=== PATIENT | male | born 1935 | race Caucasian/White ===

== ENCOUNTER 2017-07-24 18:43 | Inpatient (IN) ==
[2017-07-24] MEDS ORDERED: Levofloxacin 750 MG/150 ML 750 MG/150 ML BAG IVPB ONE (18:50)
[2017-07-24] MEDS ORDERED: Piperacillin/Tazobactam 3.375 GM/200 ML BAG IVPB ONE (18:50)
[2017-07-24] MEDS ORDERED: Ipratropium/Albuterol Neb 3 ML IH ONE ×2 (18:52→22:03)
--- NOTE | 2017-07-24 18:57 | Emergency Department Note ---
START Narrative - START START: I examined this patient and my medical decision-making was reviewed with the ROSS CARRIER DRIVER/PA/Advanced Practice Nurse/Resident Physician. I agree with the documented findings, disposition and treatment plan as described except to the extent set forth below. ED attending note: Patient seen with emergency medicine resident Dr. Aung Diaz. We independently evaluated the patient. We independently had face-to- face contact with the patient. Please see a copy of his note for details of the history and physical, evaluation, management and disposition of this emergency Department patient. Briefly: 81-year-old male by EMS [facility] for aspiration yesterday and cough shortness of breath and fever today. Patient has difficulty communicating due to his coughing. He was hypoxic upon arrival to Neck and tachycardic. Suspected source of infection is aspiration pneumonia with rhonchorous breath sounds bilaterally. Patient being worked up and treated for potential H Pneumonia. Providing 45 minutes of critical care services for this patient. Admission disposition pending.
--- NOTE | 2017-07-24 18:58 | Emergency Department Note ---
Disposition Clinical Impression: Aspiration pneumonia Qualifiers: Aspiration pneumonia type: unspecified Laterality: bilateral Lung location: lower lobe of lung Qualified Code(s): J69.0 - Pneumonitis due to inhalation of food and vomit Sepsis Qualifiers: Sepsis type: sepsis due to unspecified organism Qualified Code(s): A41.9 - Sepsis, unspecified organism Disposition: Admitted As Inpatient Condition: Fair Referrals: Augustina Cyr [Primary Care Provider] - Forms: Work/School Release, ED Satisfaction Letter Time of Disposition: 21:09 General Adult HPI - General Chief complaint: ED Shortness of Breath/Dyspnea Stated complaint: "cough, possible pnuemonia" Source: EMS Mode of arrival: EMS Limitations: no limitations Nursing Notes Reviewed: Yes Vital Signs Reviewed: Yes - History of Present Illness HPI Narrative: Patient is a 81-year-old male with a past medical history of dementia, CHF, A. fib, diabetes, and hypertension presents by squad from [facility] for the complaint of possible aspiration pneumonia. According to the squad the patient aspirated food yesterday while eating and the nurse that takes care of him is concerned that she heard a rattling noise in his lungs that he has been coughing since yesterday evening. Per squad the patient had a temp of 101F his oxygen saturation was in the low 90s so is placed on 2 L of nasal cannula. I called the half-way and the patient resides and they state that the patient tends to become more quiet when he is sick and also mostly to suggest his family members. The patient does not answer any of my questions he just coughs and looks forward. When the patient's family member arrived I discussed with her that the patient does not appear to be in normal mental status and the patient's family member states that he has severe dementia and talks more to them that he does other people. Pain Scale: 0 - Related Data Home Medications Medication Instructions Recorded Confirmed Acetaminophen 325 mg PO BID PRN 03/09/17 03/09/17 Albuterol Neb [Proventil Neb] 2.5 mg IH BID PRN 03/09/17 03/09/17 Albuterol Neb [Proventil Neb] 2.5 mg IH Q24H 03/09/17 03/09/17 Aspirin [Lo-Dose Aspirin EC] 81 mg PO DAILY 03/09/17 03/09/17 Atorvastatin Calcium [Lipitor] 40 mg PO DAILY 03/09/17 03/09/17 Carbidopa/Levodopa 1 each PO TID 03/09/17 03/09/17 [Carbidopa-Levodopa 25-100 Tab] Diltiazem CD (24hr) [Cardizem CD] 120 mg PO DAILY 03/09/17 03/09/17 Donepezil HCl [Aricept] 10 mg PO DAILY 03/09/17 03/09/17 GlipiZIDE [Glipizide Xl] 10 mg PO DAILY 03/09/17 03/09/17 Isosorbide MONOnitrate (24 HR) 30 mg PO DAILY 03/09/17 03/09/17 [Imdur] Linagliptin [Tradjenta] 5 mg PO DAILY 03/09/17 03/09/17 Lisinopril [Zestril] 10 mg PO DAILY 03/09/17 03/09/17 Memantine [Namenda] 10 mg PO BID 03/09/17 03/09/17 Midodrine HCl 2.5 mg PO BID 03/09/17 03/09/17 Montelukast [Singulair] 10 mg PO DAILY 03/09/17 03/09/17 [place]-3 Fatty Acids [Fish Oil 1,000 mg PO DAILY 03/09/17 03/09/17 Concentrate] Omeprazole [PriLOSEC] 20 mg PO DAILY 03/09/17 03/09/17 Polyethylene Glycol 3350 [MiraLAX] 17 gm PO DAILY PRN 03/09/17 03/09/17 Sertraline [Zoloft] 25 mg PO DAILY 03/09/17 03/09/17 Allergies Allergy/AdvReac Type Severity Reaction Status Date / Time cimetidine [From Tagamet] AdvReac Irritable Verified 03/09/17 13:01 citalopram [From Celexa] AdvReac Nausea Verified 03/09/17 12:29 metformin AdvReac Diarrhea Verified 03/09/17 12:29 Limitations: ROS unobtainable due to patients medical condition Past Medical History - Past Medical History Medical history: Reports: atrial fibrillation, CHF, dementia, diabetes, hyperlipidemia, hypertension Surgical history: Reports: pacemaker/AICD Psychiatric history: Reports: no psych history - Social History Smoking Status: Never smoker Smokeless Tobacco Status: No Alcohol use: Reports: none Drug use: Reports: none Physical Exam Patient is [place] febrile at 100.2 degrees Fahrenheit. Patient was tachycardic on arrival however that has resolved to the upper 90s. He is hypertensive in the 170s of/90s. His pulse ox saturation per squad was in the low 90s which is why he was on nasal cannula however when taken off oxygen he drops to 94%. - General Limitations: no limitations General appearance: alert - Head Head exam: atraumatic, normocephalic, normal inspection - Eye Eye exam: Present: normal appearance, PERRL - ENT ENT exam: normal exam, mucous membranes dry - Neck Neck exam: Present: normal inspection, full ROM, trachea midline. Absent: tenderness - Chest Chest inspection: Present: normal inspection, symmetric chest wall rise. Absent : tenderness - Expanded Respiratory Exam Location: decreased breath sounds: Lower, Right, Left - Cardiovascular Cardiovascular exam: Present: normal rhythm, tachycardia, normal heart sounds, + S1, +S2 - Abdominal Exam Abdominal exam: Present: soft, Non-Tender, normal bowel sounds - Extremities Exam Extremities exam: Present: normal inspection, full ROM, normal capillary refill , pedal edema. Absent: tenderness - Back Exam Back exam: Present: normal inspection, full ROM. Absent: tenderness, CVA tenderness (R), CVA tenderness (L) - Neurological Exam Neurological exam: Present: alert - Skin Skin exam: Present: warm, dry, intact, normal color. Absent: rash, erythema Course Course Narrative: Patient's old male presenting from [facility] today complaining of possible aspiration pneumonia. On arrival was noted that the patient had a fever one or one he is tachycardic in the 110s, the patient is also hypoxic via squad and placed on 2 L nasal cannula. Due to the patient's current dementia/ altered mental status and his vital signs clinical concern for pneumonia we treated for sepsis patient. Sepsis workup was initiated which included blood cultures, lactate, basic labs as well as chest x-ray and cardiac workup. Patient will be started on empiric antibiotics for aspiration pneumonia coverage. Patient mostly to be admitted to the hospitalist for sepsis with possible causes of pneumonia. - Reevaluation(s) Reevaluation #1: Patient's chest x-ray came positive for bibasilar opacities which could represent infiltrates according to the radiologist. Also cardiomegaly with mild pulmonary vascular congestion.. Antibiotics of been on board since patient 's arrival. The patient has a leukocytosis of 14,000 with elevated neutrophils otherwise his lab work is unremarkable. I discussed these findings with the hospitalist to discuss it reinitiated cultures and antibiotics the plan is symmetric patient for pneumonia with sepsis. She agrees with the plan. Time: 21:14 Vital Signs Temperature 100.2 F H 07/24/17 18:47 Pulse Rate 108 07/24/17 18:47 Respiratory Rate 22 07/24/17 18:47 Blood Pressure 180/87 07/24/17 18:47 O2 Sat by Pulse Oximetry 96 07/24/17 18:47 Temperature 100.2 F H 07/24/17 18:47 Pulse Rate 94 07/24/17 20:18 Respiratory Rate 21 07/24/17 20:18 Blood Pressure 159/74 07/24/17 20:18 O2 Sat by Pulse Oximetry 96 07/24/17 20:18 Oxygen Delivery Oxygen Delivery Nasal Cannula Medical Decision Making - Medical Records Medical records reviewed: Yes I reviewed the patient's medical records. - Lab Data Lab results reviewed: Yes I reviewed the patient's lab results. Result diagrams: 07/24/17 19:08 07/24/17 19:08 Lab Results 07/24/17 07/24/17 07/24/17 Range/Units 19:08 19:08 19:08 WBC 14.0 H (4.3-11.1) K/mcL RBC 5.28 (4.19-5.50) M/mcL Hgb 16.0 (12.9-16.9) g/dL Hct 45.7 (37.5-50.1) % MCV 86.6 (83.0-100.0) fL MCH 30.3 (28.0-33.3) pg MCHC 35.0 (31.6-35.5) g/dL RDW 13.0 (11.5-14.5) % Plt Count 204 (140-400) K/mcL MPV 10.4 (9.4-12.4) fL Immature Gran % 0.4 (0-4) % Seg Neutrophils % 73.5 % Lymphocytes % 15.9 % Monocytes % 9.7 % Eosinophils % 0.1 % Basophils % 0.4 % Neutrophils # 10.2 H (1.6-8.9) K/mcL Lymphocytes # 2.2 (0.6-4.6) K/mcL Monocytes # 1.4 H (0.0-1.3) K/mcL Eosinophils # 0.0 (0.0-0.6) K/mcL Basophils # 0.1 (0.0-0.2) K/mcL Sodium 138 (136-145) mEq/L Potassium 3.9 (3.5-5.1) mEq/L Chloride 107 (98-107) mEq/L Carbon Dioxide 20 L (23-29) mEq/L BUN 22 (8-23) mg/dL Creatinine 1.07 (0.70-1.30) mg/dL Est GFR ( Amer) > 60 (> 60) Est GFR (Non-Af Amer) > 60 (> 60) BUN/Creatinine Ratio 21 (6-26) Glucose 165 H (70-105) mg/dL Calculated Osmolality 293 (280-300) Calcium 9.0 (8.6-10.3) mg/dL Phosphorus 3.1 (2.7-4.5) mg/dL Magnesium 1.7 (1.6-2.6) mg/dL Troponin I 0.03 (< 0.04) ng/mL B-Natriuretic Peptide (Less than 100) pg/mL Specimen Rejected 07/24/17 07/24/17 Range/Units 19:08 19:10 WBC (4.3-11.1) K/mcL RBC (4.19-5.50) M/mcL Hgb (12.9-16.9) g/dL Hct (37.5-50.1) % MCV (83.0-100.0) fL MCH (28.0-33.3) pg MCHC (31.6-35.5) g/dL RDW (11.5-14.5) % Plt Count (140-400) K/mcL MPV (9.4-12.4) fL Immature Gran % (0-4) % Seg Neutrophils % % Lymphocytes % % Monocytes % % Eosinophils % % Basophils % % Neutrophils # (1.6-8.9) K/mcL Lymphocytes # (0.6-4.6) K/mcL Monocytes # (0.0-1.3) K/mcL Eosinophils # (0.0-0.6) K/mcL Basophils # (0.0-0.2) K/mcL Sodium (136-145) mEq/L Potassium (3.5-5.1) mEq/L Chloride (98-107) mEq/L Carbon Dioxide (23-29) mEq/L BUN (8-23) mg/dL Creatinine (0.70-1.30) mg/dL Est GFR ( Amer) (> 60) Est GFR (Non-Af Amer) (> 60) BUN/Creatinine Ratio (6-26) Glucose (70-105) mg/dL Calculated Osmolality (280-300) Calcium (8.6-10.3) mg/dL Phosphorus (2.7-4.5) mg/dL Magnesium (1.6-2.6) mg/dL Troponin I (< 0.04) ng/mL B-Natriuretic Peptide 34 (Less than 100) pg/mL Specimen Rejected Hemolyzed - Radiology Data Radiology results reviewed: Yes I reviewed the patient's radiology results. Chest X-Ray 07/24/17 18:48 IMPRESSION: Mild bibasilar opacities are present, which could represent atelectasis, infiltrates or aspiration. Low lung volumes limit evaluation. Cardiomegaly with mild pulmonary vascular congestion and possible trace effusions. D/ / Shiv Bey MD / Shiv Bey MD Interpreting Provider: Shiv Bey MD - EKG Data EKG #1 EKG attestation: Yes I reviewed and interpreted this EKG. EKG results narrative: Patient's EKG shows sinus rhythm at a rate of 91 bpm. His normal axis. CO is 152, QRS is 122, QT is 365 and QTc is 413 within normal limits. No signs of ST elevation, depression or Q waves present and no old EKG for comparison.
[2017-07-24 19:29] LABS: Basophils # 0.1 K/mcL (0.0-0.2); Basophils % 0.4 %; Eosinophils % 0.1 %; Hematocrit 45.7 % (37.5-50.1); Immature Granulocytes % 0.4 % (0-4); Lymphocytes # 2.2 K/mcL (0.6-4.6); Lymphocytes % 15.9 %; Mean Corpuscular Hemoglobin 30.3 pg (28.0-33.3); Mean Corpuscular Volume 86.6 fL (83.0-100.0); Mean Platelet Volume 10.4 fL (9.4-12.4); Monocytes # 1.4 K/mcL (0.0-1.3); Monocytes % 9.7 %; Neutrophils # 10.2 K/mcL (1.6-8.9); Platelet Count 204 K/mcL (140-400); Red Blood Count 5.28 M/mcL (4.19-5.50); Segmented Neutrophils % 73.5 %
[2017-07-24 19:47] LABS: BUN/Creatinine Ratio 21 (6-26); Blood Urea Nitrogen 22 mg/dL (8-23); Carbon Dioxide 20 mEq/L (23-29); Chloride 107 mEq/L (98-107); Glucose 165 mg/dL (70-105); Magnesium 1.7 mg/dL (1.6-2.6); Osmolality,Calculated 293 (280-300); Phosphorous 3.1 mg/dL (2.7-4.5); Potassium 3.9 mEq/L (3.5-5.1); Sodium 138 mEq/L (136-145); eGFR For African Americans > 60 (> 60); eGFR For Non-African Americans > 60 (> 60)
[2017-07-24] MEDS ORDERED: Piperacillin/Tazobactam 3.375 GM in Water for inj. (sterile) 20 ML IVP ONE (19:48)
[2017-07-24] MEDS ORDERED: Vancomycin 1,750 MG in D5% in Water 500 ML IVPB ONE (19:51)
[2017-07-24] MEDS ORDERED: Acetaminophen 325 MG TABLET PO PRN (21:39)
[2017-07-24] MEDS ORDERED: Naloxone 0.4 MG/ML INJ IVP PRN (21:39)
--- NOTE | 2017-07-24 22:00 | Internal Med History&Physical ---
<Naldo Joyner J - Last Filed: 07/24/17 22:59> Date of Encounter: 07/24/17 Time of Encounter: 21:53 Assessment and Plan (1) Aspiration pneumonia Current visit: Yes Status: Acute ASSESSMENT: - Dyspnea and hypoxia d/t aspiration PNA. He reports the patient aspirated while eating yesterday. Since then he has had a cough, fever, and dyspnea. -CXR concerning for aspiration PNA. PLAN: - Blood Cx- follow and narrow ATB as clinically appropriate - Antibiotics include Vancomycin, Levaquin and Zosyn - CBCD, CMP in AM - Tylenol 650 mg PO q 4-6 hr PRN pain or fever - Restart Home meds - Heparin 5000 U SQ BID -REspiratory support per NC; titrate to maintain Spo2 >92% -Continuous tele, and Spo2 monitoring Qualifiers: Aspiration pneumonia type: unspecified Laterality: bilateral Lung location: lower lobe of lung Qualified Code(s): J69.0 - Pneumonitis due to inhalation of food and vomit (2) HTN (hypertension) Current visit: Yes Status: Chronic H/O HTN, SBP 160's. Resume home antihypertensives. Give 10mg IVP metoprolol for SBP greater than 160. Hold for HR less than 60. continue to monitor Qualifiers: Hypertension type: essential hypertension Qualified Code(s): I10 - Essential (primary) hypertension (3) Dementia Current visit: Yes Status: Chronic Qualifiers: Dementia type: unspecified type Dementia behavioral disturbance: without behavioral disturbance Qualified Code(s): F03.90 - Unspecified dementia without behavioral disturbance (4) Leukocytosis Current visit: Yes Status: Acute secondary to aspiration PNA. CBCD in the morning. See further planning above Qualifiers: Leukocytosis type: unspecified Qualified Code(s): D72.829 - Elevated white blood cell count, unspecified (5) Diabetes mellitus Current visit: No Status: Acute Qualifiers: Diabetes mellitus type: type 2 Diabetes mellitus complication status: without complication Diabetes mellitus jail insulin use: without jail use Qualified Code(s): E11.9 - Type 2 diabetes mellitus without complications (6) DVT prophylaxis Current visit: Yes Status: Acute Heparin 5000 units SC BID Internal Medicine - H&P: HPI Chief complaint: DYSPNEA, HYPOXIA, ASPIRATION PNEUMONIA Admitted From: Home Plans for Post Hospital Care: Home History of present illness: Mr. Gutierrez is a 81 year old male with a PMH of dementia, Afib, pacer/AICD, CHF , HTN, and DM. He lives at [facility] and presents to [facility] today with a 1-day h/o cough, fever, and hypoxia. The patient is demented and unable to assist in H&P, but is daughter is at bedside. All information obtained from chart review, physician report and daughter. She reports that she was contacted by his primary nurse with concern that he may have aspirated yesterday while eating his meal. Since then he has been febrile, dyspneic, and coughing. Upon arrival to [facility] today he was found to be febrile and hypoxic with Spo2 in the low 90's and he was requiring nasal cannula at 2L to maintain Spo2 greater than 94%. He has leukocytosis with a WBC of 14 and CXR reveals mild bibasilar opacities which given his presentation and history is likely aspiration pneumonia. He is being admitted as inpatient for administration of IV ATB for aspiration PNA. I have seen and examined the patient in the ED. Past Med Surg Social Fam HX - Past Medical History Medical history: atrial fibrillation, CHF, dementia, diabetes, hyperlipidemia, hypertension Psychiatric history: no psych history - Past Surgical History Surgical History: pacemaker/AICD - Social History Smoking Status: Never smoker Smokeless Tobacco Status: No Alcohol use: none Drug use: none - Family History Mother Hx Family Neuromuscular Disorders: Yes (ALZHIEMER'S DISEASE.) Internal Medicine - H&P: Meds Acetaminophen 650 mg PO Q4H PRN 03/09/17 [History] Albuterol Neb [Proventil Neb] 2.5 mg IH BID 03/09/17 [History] Albuterol Neb [Proventil Neb] 2.5 mg IH BID PRN 03/09/17 [History] Aspirin [Lo-Dose Aspirin EC] 81 mg PO QAM 03/09/17 [History] Atorvastatin Calcium [Lipitor] 40 mg PO DAILY 03/09/17 [History] Carbidopa/Levodopa [Carbidopa-Levodopa 25-100 Tab] 1 each PO TID 03/09/17 [ History] Diltiazem CD (24hr) [Cardizem CD] 120 mg PO QAM 03/09/17 [History] Donepezil HCl [Aricept] 10 mg PO HS 03/09/17 [History] Isosorbide MONOnitrate (24 HR) [Imdur] 30 mg PO QAM 03/09/17 [History] Linagliptin [Tradjenta] 5 mg PO QAM 03/09/17 [History] Lisinopril [Zestril] 10 mg PO QAM 03/09/17 [History] Memantine [Namenda] 10 mg PO BID 03/09/17 [History] Midodrine HCl 2.5 mg PO BID 03/09/17 [History] Montelukast [Singulair] 10 mg PO DAILY 03/09/17 [History] [place]-3 Fatty Acids [Fish Oil Concentrate] 1,000 mg PO DAILY 03/09/17 [History] Omeprazole [PriLOSEC] 20 mg PO DAILY 03/09/17 [History] Polyethylene Glycol 3350 [MiraLAX] 17 gm PO DAILY PRN 03/09/17 [History] Sertraline [Zoloft] 25 mg PO HS 03/09/17 [History] Cholecalciferol (D-3) [Vitamin D] 2,000 unit PO DAILY 07/25/17 [History] Insulin ASPART [NovoLOG] 10 unit SQ TID 07/25/17 [History] Insulin Glargine [Lantus] 15 unit SQ HS 07/25/17 [History] 3 Allergy/AdvReac Type Severity Reaction Status Date / Time cimetidine [From Tagamet] AdvReac Irritable Verified 03/09/17 13:01 citalopram [From Celexa] AdvReac Nausea Verified 03/09/17 12:29 metformin AdvReac Diarrhea Verified 03/09/17 12:29 All Systems PM: A 10-system review of systems was performed and is negative for pertinent findings except as documented above in the HPI. - Constitutional Constitutional: fatigue, fever(s), weakness, no anorexia, no chills - Cardiovascular Cardiovascular ROS IM: no chest pain, no diaphoresis, no dyspnea, no edema, no irregular heart rhythm, no lightheadedness, no palpitations, no syncope - Respiratory Respiratory: cough, dyspnea, chest congestion, no pain on inspiration, no excessive phlegm production, no change in phlegm color, no pain with cough - Gastrointestinal Gastrointestinal: no abdominal pain, no diarrhea, no hematemesis, no hematochezia, no melena, no nausea, no vomiting - Musculoskeletal Musculoskeletal ROS IM: no numbness, no tingling - Integumentary Integumentary IM: no rash, no unusual bruising - Neurological Neurological ROS: confusion (baseline) - Constitutional Vitals: Temp Pulse Resp BP Pulse Ox 100.2 F H 84 20 172/72 96 07/24/17 18:47 07/24/17 21:40 07/24/17 21:40 07/24/17 21:40 07/24/17 21:40 General appearance: Present: A&O X 0, mild distress - Head Head exam: Present: atraumatic, normocephalic - Neck Neck exam general surgery: Present: supple, trachea midline. Absent: lymphadenopathy - Respiratory Respiratory exam: Present: rhonchi (throughout BL lobes A&P) - Cardiovascular Cardiovascular exam: Present: RRR, +S1, +S2. Absent: diastolic murmur, gallop, rubs, systolic murmur - GI/Abdominal GI/Abdominal exam: Present: normal bowel sounds, soft, no peritoneal signs. Absent: distended, tenderness - Extremities Exam Extremities exam: Present: warm, radial pulses palpable and symmetrical. Absent : calf tenderness, cyanotic, pedal edema - Neurological Exam Neurological exam: Present: alert (disoriented). Absent: facial droop, speech deficit - Skin Skin exam: Present: dry, intact Internal Med - H&P Results - Labs CBC & Chem 7: 07/24/17 19:08 07/24/17 19:08 Labs: Short CBC 07/24/17 Range/Units 19:08 WBC 14.0 H (4.3-11.1) K/mcL Hgb 16.0 (12.9-16.9) g/dL Hct 45.7 (37.5-50.1) % Plt Count 204 (140-400) K/mcL Neutrophils # 10.2 H (1.6-8.9) K/mcL BMP 07/24/17 19:08 Sodium 138 Potassium 3.9 Chloride 107 Carbon Dioxide 20 L BUN 22 Creatinine 1.07 Glucose 165 H Calcium 9.0 Cardiac Enzymes 07/24/17 Range/Units 19:08 Troponin I 0.03 (< 0.04) ng/mL - Impressions ITS Impressions Chest X-Ray 01/13/18 18:48 IMPRESSION: Mild bibasilar opacities are present, which could represent atelectasis, infiltrates or aspiration. Low lung volumes limit evaluation. Cardiomegaly with mild pulmonary vascular congestion and possible trace effusions. D/ / Shiv Bey MD / Shiv Bey MD Interpreting Provider: Shiv Bey MD - Diagnostic Studies Chest x-ray Status: image reviewed by me Additional comments: Mild basilar opacities present presentation and history likely aspiration pneumonia <Graciela Madrigal - Last Filed: 07/26/17 06:01> Date of Encounter: 07/24/17 Time of Encounter: 23:50 Internal Medicine - H&P: HPI History of present illness: Mr. Gutierrez is a 81 year old male All Systems PM: A 10-system review of systems was performed and is negative for pertinent findings except as documented above in the HPI. - Constitutional Vitals: Temp Pulse Resp BP Pulse Ox 98.5 F 67 18 129/78 93 07/26/17 03:07 07/26/17 03:07 07/26/17 03:27 07/26/17 03:07 07/26/17 03:07 Internal Med - H&P Results - Labs CBC & Chem 7: 07/25/17 03:37 07/25/17 03:37 - Attending Attestation Patient was independently seen and examined at bedside. Admitted for aspiration PNA from [place] will continue empiric IV abx, speech evaluation Case discussed with EBEN joyner, I agree with his documented findings, assessment, and plan except as listed above
[2017-07-24] MEDS ORDERED: Albuterol 2.5 MG/3 ML NEBULIZER ONE (22:01)
[2017-07-24] MEDS ORDERED: *HR* Metoprolol 5 MG/5 ML VIAL IVP ONE (23:15)
[2017-07-24] MEDS: Carbidopa/Levodopa 25/100 TABLET PO SCH (23:55)
[2017-07-25] MEDS ORDERED: Piperacillin/Tazobactam 3.375 GM in D5% in Water (Mini-Bag+) 100 ML IVPB SCH
[2017-07-25] MEDS: Ipratropium/Albuterol Neb 3 ML IH SCH ×7 (00:20→23:46)
[2017-07-25 03:49] LABS: Basophils % 0.4 %; Eosinophils % 0.1 %; Hematocrit 43.7 % (37.5-50.1); Hemoglobin 15.1 g/dL (12.9-16.9); Immature Granulocytes % 0.6 % (0-4); Lymphocytes # 0.8 K/mcL (0.6-4.6); Mean Corpuscular HGB Conc 34.6 g/dL (31.6-35.5); Mean Corpuscular Hemoglobin 30.1 pg (28.0-33.3); Mean Corpuscular Volume 87.2 fL (83.0-100.0); Monocytes % 10.8 %; Neutrophils # 7.7 K/mcL (1.6-8.9); Platelet Count 184 K/mcL (140-400); Red Blood Count 5.01 M/mcL (4.19-5.50); Red Cell Distribution Width 13.2 % (11.5-14.5); Segmented Neutrophils % 80.1 %
[2017-07-25 04:06] LABS: BUN/Creatinine Ratio 19 (6-26); Blood Urea Nitrogen 20 mg/dL (8-23); Calcium 8.5 mg/dL (8.6-10.3); Carbon Dioxide 22 mEq/L (23-29); Chloride 106 mEq/L (98-107); Glucose 228 mg/dL (70-105); Osmolality,Calculated 294 (280-300); Potassium 4.2 mEq/L (3.5-5.1); Sodium 137 mEq/L (136-145); eGFR For African Americans > 60 (> 60); eGFR For Non-African Americans > 60 (> 60)
[2017-07-25] MEDS: *HR* Heparin 5,000 UNIT/ML VIAL SQ SCH ×2 (05:03→16:13)
[2017-07-25] MEDS: Piperacillin/Tazobactam 3.375 GM/200 ML BAG IVPB SCH ×3 (05:03→20:38)
[2017-07-25] MEDS ORDERED: Vancomycin 1,250 MG in D5% in Water 250 ML IVPB SCH (09:00)
[2017-07-25] MEDS: Isosorbide MONOnitrate (24 HR) 30 MG TAB.ER.24H PO SCH (09:36)
[2017-07-25] MEDS: Carbidopa/Levodopa 25/100 TABLET PO SCH ×3 (09:36→20:39)
[2017-07-25] MEDS: Aspirin Enteric Coated 81 MG Tablet PO SCH (09:36)
[2017-07-25] MEDS: Diltiazem CD (24hr) 120 MG CAPSULE PO SCH (09:36)
--- NOTE | 2017-07-25 14:18 | Internal Med Progress Note ---
Date of Encounter: 07/25/17 Time of Encounter: 11:00 - Assessment and plan (1) Aspiration pneumonia Current Visit: Yes Status: Acute Assessment and plan: to ER with reported SOB and cough. Lives at [facility] and apparently had a choking episode while eating the day prior and there is concern for aspiration. CXR with bibasilar opacities concerning for possible aspiration. WBC 14K, Tmax 100.2. Continue IV Vanco, Zosyn, Levaquin. De-escalate ATB as cultures finalize and/or clinically improves. Urinary antigens, sputum culture, respiratory PCR pending. Keep NPO until evaluated by ST. Qualifiers: Aspiration pneumonia type: unspecified Laterality: bilateral Lung location: lower lobe of lung Qualified Code(s): J69.0 - Pneumonitis due to inhalation of food and vomit (2) Dementia Current Visit: Yes Status: Chronic Assessment and plan: per hx. [place] as well. Alert to self, place and situation. Mentation appears at baseline. Supportive care Qualifiers: Dementia type: unspecified type Dementia behavioral disturbance: without behavioral disturbance Qualified Code(s): F03.90 - Unspecified dementia without behavioral disturbance (3) Diabetes mellitus Current Visit: No Status: Acute Assessment and plan: per hx. Blood sugars variable. Start gentle infusion of D5 0.45 as he is NPO. SSI. Monitor blood sugars and titrate PRN Qualifiers: Diabetes mellitus type: type 2 Diabetes mellitus complication status: without complication Diabetes mellitus workers compensation specialist insulin use: without chcf use Qualified Code(s): E11.9 - Type 2 diabetes mellitus without complications (4) Paroxysmal A-fib Current Visit: Yes Status: Acute Assessment and plan: per hx. Rate controlled. No anticoagulation presumably due to advanced age and falls risk. Continue ASA, CBB (5) HTN (hypertension) Current Visit: Yes Status: Chronic Assessment and plan: per hx. BP controlled. Cont home BP medication. Monitor BP and titrate PRN Qualifiers: Hypertension type: essential hypertension Qualified Code(s): I10 - Essential (primary) hypertension (6) DVT prophylaxis Current Visit: Yes Status: Acute Assessment and plan: heparin - Subjective Interval history: Seen and examined at bedside. Patient is new to me, information obtained from chart review and patient report though patient has dementia so difficult to ascertain accuracy of information provided by patient. No family at bedside for collateral. Sitting up on the edge of the bed, has no complaints. Says he is hungry and wants to eat. No chest pain or shortness of breath. He does have a nonproductive cough. - Constitutional Vitals: Temp Pulse Resp BP Pulse Ox 98.9 F 81 18 121/61 93 07/25/17 11:54 07/25/17 11:54 07/25/17 11:54 07/25/17 11:54 07/25/17 11:54 General appearance: Present: A&O X 2, morbidly obese, no acute distress - Head Head exam: Present: atraumatic, normocephalic - Eye Eye exam: Present: PERRL, conjuntiva pink, sclera anicteric Pupils: Present: PERRL - Neck Neck exam general surgery: Present: supple, trachea midline. Absent: lymphadenopathy - Respiratory Respiratory exam: Present: CTAB, rhonchi. Absent: accessory muscle use, rales, wheezes - Cardiovascular Cardiovascular exam: Present: RRR, +S1, +S2. Absent: diastolic murmur, gallop, rubs, systolic murmur - GI/Abdominal GI/Abdominal exam: Present: normal bowel sounds, soft, no peritoneal signs. Absent: distended, tenderness - Extremities Exam Extremities exam: Present: warm, radial pulses palpable and symmetrical. Absent : calf tenderness, cyanotic, pedal edema - Neurological Exam Neurological exam: Present: CN II-XII intact, no focal deficits. Absent: pronater drift, facial droop, speech deficit - Skin Skin exam: Present: dry, intact Internal Medicine: Result - Labs CBC & Chem 7: 07/25/17 03:37 07/25/17 03:37 Labs: Short CBC 07/25/17 Range/Units 03:37 WBC 9.6 (4.3-11.1) K/mcL Hgb 15.1 (12.9-16.9) g/dL Hct 43.7 (37.5-50.1) % Plt Count 184 (140-400) K/mcL Neutrophils # 7.7 (1.6-8.9) K/mcL BMP 07/25/17 03:37 Sodium 137 Potassium 4.2 Chloride 106 Carbon Dioxide 22 L BUN 20 Creatinine 1.04 Glucose 228 H Calcium 8.5 L Consult Discharge Plan - Plan Referrals: Augustina Cyr [Primary Care Provider] -
[2017-07-25] MEDS ORDERED: *HR* Dextrose 50 % in Water (Syg) 50 ML SYRINGE IVP PRN (14:30)
[2017-07-25] MEDS ORDERED: Dextrose Gel 15 GM/37.5 ML TUBE PO PRN (14:30)
[2017-07-25] MEDS ORDERED: D5% in Water 1,000 ML IVC PRN (14:30)
[2017-07-25] MEDS: Levofloxacin 750 MG/150 ML 750 MG/150 ML BAG IVPB SCH (18:44)
[2017-07-25] MEDS: Insulin LISPRO 300 UNITS/3 ML VIAL SQ SCH (18:44)
[2017-07-25] MEDS: Vancomycin 1,500 MG in D5% in Water 250 ML IVPB SCH (22:26)
[2017-07-25] MEDS ORDERED: *HR* Metoprolol 5 MG/5 ML VIAL IVP ONE (23:05)
[2017-07-26] MEDS: Insulin LISPRO 300 UNITS/3 ML VIAL SQ SCH ×4 (00:02→18:40)
[2017-07-26] MEDS: Ipratropium/Albuterol Neb 3 ML IH SCH ×6 (03:27→23:45)
[2017-07-26] MEDS: Piperacillin/Tazobactam 3.375 GM/200 ML BAG IVPB SCH ×3 (04:19→20:28)
[2017-07-26] MEDS: *HR* Heparin 5,000 UNIT/ML VIAL SQ SCH ×2 (05:17→18:41)
[2017-07-26] MEDS: Diltiazem CD (24hr) 120 MG CAPSULE PO SCH ×2 (08:58→13:14)
[2017-07-26] MEDS: Isosorbide MONOnitrate (24 HR) 30 MG TAB.ER.24H PO SCH ×2 (08:58→13:14)
[2017-07-26] MEDS: Aspirin Enteric Coated 81 MG Tablet PO SCH ×2 (08:58→13:14)
[2017-07-26] MEDS: Carbidopa/Levodopa 25/100 TABLET PO SCH ×3 (08:58→20:29)
[2017-07-26] MEDS ORDERED: Vancomycin 1,750 MG in D5% in Water 250 ML IVPB SCH (09:00)
[2017-07-26] MEDS: Vancomycin 1,500 MG in D5% in Water 250 ML IVPB SCH (11:04)
--- NOTE | 2017-07-26 12:05 | Internal Med Progress Note ---
Date of Encounter: 07/26/17 Time of Encounter: 08:15 - Assessment and plan (1) Aspiration pneumonia Current Visit: Yes Status: Acute Assessment and plan: Patient with witnessed choking episode at assisted living prior to admission, there was concern for aspiration. Chest x-ray with bibasilar opacities concerning for possible aspiration. Patient with audible wheezing noted at this morning. Requiring supplemental oxygen. Patient is also positive for influenza A. Blood cultures x 2 negative. Continue IV vancomycin, IV Zosyn, IV Levaquin. Will de-escalate antibiotics as cultures finalize and/or patient clinically improves. Urinary antigens, sputum culture pending Continue O2 as needed to maintain sats greater than 92%. Continue duo nebs Qualifiers: Aspiration pneumonia type: unspecified Laterality: bilateral Lung location: lower lobe of lung Qualified Code(s): J69.0 - Pneumonitis due to inhalation of food and vomit (2) HTN (hypertension) Current Visit: Yes Status: Chronic Assessment and plan: Continue home medications. Monitor vitals per admission orders. Qualifiers: Hypertension type: essential hypertension Qualified Code(s): I10 - Essential (primary) hypertension (3) Dementia Current Visit: Yes Status: Chronic Qualifiers: Dementia type: unspecified type Dementia behavioral disturbance: without behavioral disturbance Qualified Code(s): F03.90 - Unspecified dementia without behavioral disturbance (4) Hyperlipidemia Current Visit: Yes Status: Chronic Assessment and plan: Chronic. Continue Lipitor. Qualifiers: Hyperlipidemia type: pure hypercholesterolemia Qualified Code(s): E78.00 - Pure hypercholesterolemia, unspecified (5) Diabetes mellitus Current Visit: No Status: Acute Assessment and plan: Uncontrolled. Hemoglobin A1c was 9.4% in May. Continue sliding scale insulin, Accu-Cheks before meals at bedtime, diabetic diet. Qualifiers: Diabetes mellitus type: type 2 Diabetes mellitus complication status: without complication Diabetes mellitus rn otolaryngology insulin use: without rn otolaryngology use Qualified Code(s): E11.9 - Type 2 diabetes mellitus without complications (6) Paroxysmal A-fib Current Visit: Yes Status: Acute Assessment and plan: Rate controlled. Continue aspirin and Cardizem. Patient is not on anticoagulation, mostly due to advanced age and increased risk of falls. (7) DVT prophylaxis Current Visit: Yes Status: Acute Assessment and plan: Heparin subcutaneous daily. (8) Obesity (BMI 30.0-34.9) Current Visit: Yes Status: Chronic Assessment and plan: Chronic. Continue to attempt to encourage lifestyle modifications. - Time Spent With Patient less than 15 minutes - Subjective Interval history: Patient was seen and assessed at bedside at 8:15 AM. He is alert and oriented 3 and answers questions appropriately. States he lives at assisted living at [facility]. He states that he is feeling better. He denies chest pain, nausea , vomiting, diarrhea, productive cough, headache, or abdominal pain. - Constitutional Vitals: Temp Pulse Resp BP Pulse Ox 98.3 F 60 17 111/57 93 07/26/17 08:10 07/26/17 08:10 07/26/17 08:10 07/26/17 08:10 07/26/17 08:10 General appearance: Present: cooperative, A&O X 3, morbidly obese, pleasant, no acute distress, answers questions appropriately - Head Head exam: Present: atraumatic, normal inspection, normocephalic - Eye Eye exam: Present: normal appearance, conjuntiva pink, sclera anicteric - Neck Neck exam general surgery: Present: supple, trachea midline - Respiratory Respiratory exam: Present: decreased breath sounds, CTAB, wheezes. Absent: accessory muscle use, rales, respiratory distress, rhonchi - Cardiovascular Cardiovascular exam: Present: RRR, +S1, +S2. Absent: diastolic murmur, gallop, rubs, systolic murmur - GI/Abdominal GI/Abdominal exam: Present: normal bowel sounds, soft, no peritoneal signs. Absent: distended, hepatomegaly - Extremities Exam Extremities exam: Present: normal inspection, warm, radial pulses palpable and symmetrical. Absent: calf tenderness, cyanotic, pedal edema - Neurological Exam Neurological exam: Present: alert, oriented X3, no focal deficits. Absent: facial droop, speech deficit - Skin Skin exam: Present: dry, intact, normal color, warm. Absent: rash Internal Medicine: Result - Labs CBC & Chem 7: 07/25/17 03:37 07/25/17 03:37 - Impressions Impressions Videofluoroscopic Swallow 07/26/17 09:30 IMPRESSION: Findings as described above. Please see separate speech pathology report for full discussion of findings and recommendations. D/ / 07/26/2017 11:54:51 Amadou Carrizales MD / Jocelin Power Interpreting Provider: Amadou Carrizales MD Consult Discharge Plan - Plan Referrals: Augustina Cyr [Primary Care Provider] -
--- NOTE | 2017-07-26 14:17 | Electrocardiograph Report ---
[place] [id number] Test Date: 2017-07-24 Pat Name: Jamel Gutierrez Department: 104 Room: 3B11 Gender: M Team Lead: MALIA : 1935 Requested By: Aung Diaz Order Number: [id number] Reading MD: Deanna Clark Measurements Intervals [place] Rate: 91 P: 14 OR: 162 QRS: -35 QRSD: 122 T: 15 QT: 365 QTc: 413 Interpretive Statements SINUS RHYTHM LEFT AXIS DEVIATION [QRS AXIS < -30] MINIMAL VOLTAGE CRITERIA FOR LVH, CONSIDER NORMAL VARIANT POSSIBLE ANTEROLATERAL MYOCARDIAL INFARCTION [30 ms Q WAVE IN I/aVL/V3-V6], PROBABLY OLD Electronically Signed On 07-26-2017 14:15:33 EST by Deanna Clark
[2017-07-26] MEDS: D5% in 0.45% NACL 1,000 ML IVC SCH ×2 (19:46)
[2017-07-26] MEDS: Levofloxacin 750 MG/150 ML 750 MG/150 ML BAG IVPB SCH (20:28)
[2017-07-26 20:31] LABS: Vancomycin,Trough 24.5 mcg/mL (10-20)
[2017-07-26 21:05] LABS: BUN/Creatinine Ratio 18 (6-26); Blood Urea Nitrogen 24 mg/dL (8-23); eGFR For African Americans > 60 (> 60); eGFR For Non-African Americans 51 (> 60)
[2017-07-27] MEDS: Insulin LISPRO 300 UNITS/3 ML VIAL SQ SCH ×6 (01:19→22:03)
[2017-07-27] MEDS: Ipratropium/Albuterol Neb 3 ML IH SCH ×6 (04:09→23:01)
[2017-07-27] MEDS: Piperacillin/Tazobactam 3.375 GM/200 ML BAG IVPB SCH ×3 (05:03→22:02)
[2017-07-27] MEDS: Vancomycin 1,500 MG in D5% in Water 250 ML IVPB SCH (05:03)
[2017-07-27] MEDS: *HR* Heparin 5,000 UNIT/ML VIAL SQ SCH ×2 (05:04→17:06)
[2017-07-27 05:51] LABS: Basophils % 0.4 %; Eosinophils # 0.1 K/mcL (0.0-0.6); Eosinophils % 0.9 %; Hemoglobin 14.4 g/dL (12.9-16.9); Immature Granulocytes % 0.7 % (0-4); Lymphocytes # 0.9 K/mcL (0.6-4.6); Mean Corpuscular HGB Conc 33.5 g/dL (31.6-35.5); Mean Corpuscular Hemoglobin 29.6 pg (28.0-33.3); Mean Corpuscular Volume 88.5 fL (83.0-100.0); Monocytes # 0.7 K/mcL (0.0-1.3); Monocytes % 12.9 %; Neutrophils # 3.7 K/mcL (1.6-8.9); Platelet Count 167 K/mcL (140-400); Red Blood Count 4.86 M/mcL (4.19-5.50); Segmented Neutrophils % 68.1 %
[2017-07-27 07:44] LABS: Calcium 8.7 mg/dL (8.6-10.3); Potassium 4.2 mEq/L (3.5-5.1)
[2017-07-27] MEDS: Aspirin Enteric Coated 81 MG Tablet PO SCH (08:37)
[2017-07-27] MEDS: Isosorbide MONOnitrate (24 HR) 30 MG TAB.ER.24H PO SCH (08:37)
[2017-07-27] MEDS: Diltiazem CD (24hr) 120 MG CAPSULE PO SCH (08:38)
[2017-07-27] MEDS: Carbidopa/Levodopa 25/100 TABLET PO SCH ×3 (08:38→22:03)
--- NOTE | 2017-07-27 14:47 | Internal Med Progress Note ---
Date of Encounter: 07/27/17 Time of Encounter: 10:00 - Assessment and plan (1) Aspiration pneumonia Current Visit: Yes Status: Acute Assessment and plan: Patient with witnessed choking episode at assisted living prior to admission, there was concern for aspiration. Chest x-ray with bibasilar opacities concerning for possible aspiration. Patient with audible wheezing noted at this morning, has improved since yesterday. He is Requiring supplemental oxygen and does not wear O2 at home. We will try to qualify him prior to discharge tomorrow. Patient is also positive for influenza A. Blood cultures x 2 negative. Continue IV vancomycin, IV Zosyn, IV Levaquin. Will de-escalate antibiotics as cultures finalize and/or patient clinically improves. Urinary antigens, sputum culture pending Continue O2 as needed to maintain sats greater than 92%. Continue duo nebs Qualifiers: Aspiration pneumonia type: unspecified Laterality: bilateral Lung location: lower lobe of lung Qualified Code(s): J69.0 - Pneumonitis due to inhalation of food and vomit (2) HTN (hypertension) Current Visit: Yes Status: Chronic Assessment and plan: Continue home medications. Monitor vitals per admission orders. Well controlled in hospital. Qualifiers: Hypertension type: essential hypertension Qualified Code(s): I10 - Essential (primary) hypertension (3) Dementia Current Visit: Yes Status: Chronic Assessment and plan: per hx. [place] as well. Alert to self, place and situation. He appears more alert and interactive today, answers all questions appropriately. Supportive care Qualifiers: Dementia type: unspecified type Dementia behavioral disturbance: without behavioral disturbance Qualified Code(s): F03.90 - Unspecified dementia without behavioral disturbance (4) Diabetes mellitus Current Visit: No Status: Acute Assessment and plan: Uncontrolled. Hemoglobin A1c was 9.4% in May. Continue sliding scale insulin, Accu-Cheks before meals at bedtime, diabetic diet. Qualifiers: Diabetes mellitus type: type 2 Diabetes mellitus complication status: without complication Diabetes mellitus termite technician insulin use: without termite technician use Qualified Code(s): E11.9 - Type 2 diabetes mellitus without complications (5) Paroxysmal A-fib Current Visit: Yes Status: Acute Assessment and plan: Rate controlled. Continue aspirin and Cardizem. Patient is not on anticoagulation, mostly due to advanced age and increased risk of falls. (6) Obesity (BMI 30.0-34.9) Current Visit: Yes Status: Chronic Assessment and plan: Chronic. Continue to attempt to encourage lifestyle modifications. (7) Influenza A Current Visit: Yes Status: Acute Assessment and plan: Flu swab positive on 07/24. Patient reports that he had symptoms for "a couple of days "before. He reports rhinorrhea, cough, general fatigue. He was not within the window to start Tamiflu on arrival Continue to treat symptoms. (8) DVT prophylaxis Current Visit: Yes Status: Acute Assessment and plan: Heparin subcutaneous daily. (9) Hyperlipidemia Current Visit: Yes Status: Chronic Assessment and plan: Chronic. Continue home medications. Qualifiers: Hyperlipidemia type: unspecified Qualified Code(s): E78.5 - Hyperlipidemia , unspecified - Time Spent With Patient less than 15 minutes - Subjective Interval history: Patient was seen and assessed at bedside at 1000 AM. He is alert and oriented 3 and answers questions appropriately. He is hard of hearing. He sitting up at bedside eating breakfast and states that he is feeling better. He denies chest pain, nausea, vomiting, diarrhea, productive cough, headache, or abdominal pain. Patient states that he [facility] not [facility] he wants to go home to assisted living with his . His social research assistant would like to have home health and physical therapy at home. Will be arranged for discharge tomorrow if he is medically stable. - Constitutional Vitals: Temp Pulse Resp BP Pulse Ox 97.5 F L 69 15 155/84 97 07/27/17 10:50 07/27/17 10:50 07/27/17 11:41 07/27/17 10:50 07/27/17 11:41 General appearance: Present: cooperative, A&O X 3, morbidly obese, pleasant, no acute distress, answers questions appropriately - Head Head exam: Present: atraumatic, normal inspection, normocephalic - Eye Eye exam: Present: normal appearance, conjuntiva pink, sclera anicteric - Neck Neck exam general surgery: Present: normal inspection, supple, trachea midline. Absent: lymphadenopathy, tenderness - Respiratory Respiratory exam: Present: wheezes. Absent: accessory muscle use, chest wall tenderness, CTAB, rales, respiratory distress, rhonchi - Cardiovascular Cardiovascular exam: Present: RRR, +S1, +S2. Absent: diastolic murmur, gallop, rubs, systolic murmur - GI/Abdominal GI/Abdominal exam: Present: distended, normal bowel sounds, soft. Absent: tenderness - Extremities Exam Extremities exam: Present: normal inspection, warm, radial pulses palpable and symmetrical. Absent: calf tenderness, cyanotic, pedal edema - Neurological Exam Neurological exam: Present: alert, oriented X3. Absent: facial droop, speech deficit - Skin Skin exam: Present: dry, intact, normal color, warm. Absent: rash Internal Medicine: Result - Labs CBC & Chem 7: 07/27/17 03:41 07/27/17 06:52 Labs: Short CBC 07/27/17 Range/Units 03:41 WBC 5.4 (4.3-11.1) K/mcL Hgb 14.4 (12.9-16.9) g/dL Hct 43.0 (37.5-50.1) % Plt Count 167 (140-400) K/mcL Neutrophils # 3.7 (1.6-8.9) K/mcL [facility] 07/26/17 07/27/17 19:59 06:52 Sodium 136 Potassium 4.2 Chloride 105 Carbon Dioxide 23 BUN 24 H 27 H Creatinine 1.34 H 1.86 H Glucose 252 H Calcium 8.7 Consult Discharge Plan - Plan Referrals: Augustina Cyr [Primary Care Provider] -
[2017-07-28] MEDS: Piperacillin/Tazobactam 3.375 GM/200 ML BAG IVPB SCH ×2 (03:38→11:26)
[2017-07-28] MEDS: Ipratropium/Albuterol Neb 3 ML IH SCH ×6 (04:33→23:00)
[2017-07-28 05:10] LABS: Basophils % 0.4 %; Eosinophils # 0.1 K/mcL (0.0-0.6); Eosinophils % 1.7 %; Hematocrit 41.7 % (37.5-50.1); Hemoglobin 14.4 g/dL (12.9-16.9); Immature Granulocytes % 0.4 % (0-4); Lymphocytes # 1.3 K/mcL (0.6-4.6); Lymphocytes % 24.8 %; Mean Corpuscular HGB Conc 34.5 g/dL (31.6-35.5); Mean Corpuscular Hemoglobin 30.3 pg (28.0-33.3); Mean Corpuscular Volume 87.6 fL (83.0-100.0); Mean Platelet Volume 10.4 fL (9.4-12.4); Monocytes # 0.5 K/mcL (0.0-1.3); Monocytes % 9.3 %; Neutrophils # 3.4 K/mcL (1.6-8.9); Platelet Count 151 K/mcL (140-400); Red Blood Count 4.76 M/mcL (4.19-5.50); Red Cell Distribution Width 13.2 % (11.5-14.5); Segmented Neutrophils % 63.4 %
[2017-07-28 05:26] LABS: Calcium 8.7 mg/dL (8.6-10.3); Potassium 3.6 mEq/L (3.5-5.1)
[2017-07-28] MEDS: Vancomycin 1,500 MG in D5% in Water 250 ML IVPB SCH (05:59)
[2017-07-28] MEDS: *HR* Heparin 5,000 UNIT/ML VIAL SQ SCH ×2 (06:00→17:34)
--- NOTE | 2017-07-28 07:21 | Physician Discharge Referral ---
Home Health/Hosp Referral Info Provider in Charge Post Discharge: PCP - Diagnosis (1) Aspiration pneumonia Priority: Primary Status: Acute (2) HTN (hypertension) Priority: Secondary Status: Chronic (3) Dementia Priority: Secondary Status: Chronic (4) Diabetes mellitus Priority: Secondary Status: Acute (5) Paroxysmal A-fib Priority: Secondary Status: Acute (6) Obesity (BMI 30.0-34.9) Priority: Secondary Status: Chronic (7) Influenza A Priority: Secondary Status: Acute (8) DVT prophylaxis Priority: Secondary Status: Acute (9) Hyperlipidemia Priority: Secondary Status: Chronic - Respiratory Orders Oxygen / L per min (2 liters) Smoking Cessation: Smoking cessation has been advised. For more information, call the [place] Tobacco Quit Line at 9-304-EFVN-NOW. - Diet/Nutrition Diet/Nutrition Orders: Mechanical Soft - Activity Activity Orders: Up ad elinor, Walker - Services Needed Following services are medically necessary services: Nursing, Home Health Aide, Physical Therapy, Occupational Therapy - Transfer Medications Home Medications: Acetaminophen 650 mg PO Q4H PRN 03/09/17 [History] Albuterol Neb [Proventil Neb] 2.5 mg IH BID 03/09/17 [History] Albuterol Neb [Proventil Neb] 2.5 mg IH BID PRN 03/09/17 [History] Aspirin [Lo-Dose Aspirin EC] 81 mg PO QAM 03/09/17 [History] Atorvastatin Calcium [Lipitor] 40 mg PO DAILY 03/09/17 [History] Carbidopa/Levodopa [Carbidopa-Levodopa 25-100 Tab] 1 each PO TID 03/09/17 [ History] Diltiazem CD (24hr) [Cardizem CD] 120 mg PO QAM 03/09/17 [History] Donepezil HCl [Aricept] 10 mg PO HS 03/09/17 [History] Isosorbide MONOnitrate (24 HR) [Imdur] 30 mg PO QAM 03/09/17 [History] Linagliptin [Tradjenta] 5 mg PO QAM 03/09/17 [History] Lisinopril [Zestril] 10 mg PO QAM 03/09/17 [History] Memantine [Namenda] 10 mg PO BID 03/09/17 [History] Midodrine HCl 2.5 mg PO BID 03/09/17 [History] Montelukast [Singulair] 10 mg PO DAILY 03/09/17 [History] [place]-3 Fatty Acids [Fish Oil Concentrate] 1,000 mg PO DAILY 03/09/17 [History] Omeprazole [PriLOSEC] 20 mg PO DAILY 03/09/17 [History] Polyethylene Glycol 3350 [MiraLAX] 17 gm PO DAILY PRN 03/09/17 [History] Sertraline [Zoloft] 25 mg PO HS 03/09/17 [History] Cholecalciferol (D-3) [Vitamin D] 2,000 unit PO DAILY 07/25/17 [History] Insulin ASPART [NovoLOG] 10 unit SQ TID 07/25/17 [History] Insulin Glargine [Lantus] 15 unit SQ HS 07/25/17 [History] Allergies/Adverse Reactions: 3 Allergy/AdvReac Type Severity Reaction Status Date / Time cimetidine [From Tagamet] AdvReac Irritable Verified 03/09/17 13:01 citalopram [From Celexa] AdvReac Nausea Verified 03/09/17 12:29 metformin AdvReac Diarrhea Verified 03/09/17 12:29 Certification: Further, I certify that my clinical findings support that this patient is homebound (i.e. absences from home require considerable and taxing effort and are for medical reasons or druze services or infrequently or short duration when for other reasons) because: Homebound Reason: Patient requires assistance of a person or device to safely leave home, Severity of cardiac or pulmonary status limits activity tolerance Attestation: My signature below is to certify that this patient is under my care and that I, or nurse practitioner, or a physician's roofer assistant working with me, has a face-to -face encounter with this patient.
[2017-07-28] MEDS: 0.9 % Sodium Chloride 1,000 ML IVC SCH ×2 (08:31→20:40)
[2017-07-28] MEDS: Carbidopa/Levodopa 25/100 TABLET PO SCH ×3 (08:32→20:41)
[2017-07-28] MEDS: Isosorbide MONOnitrate (24 HR) 30 MG TAB.ER.24H PO SCH (08:32)
[2017-07-28] MEDS: Diltiazem CD (24hr) 120 MG CAPSULE PO SCH (08:32)
[2017-07-28] MEDS: Aspirin Enteric Coated 81 MG Tablet PO SCH (08:33)
[2017-07-28] MEDS: Insulin LISPRO 300 UNITS/3 ML VIAL SQ SCH ×4 (08:35→20:49)
[2017-07-28] MEDS ORDERED: Aminoglycoside Consult 1 EACH MC ONE (10:36)
[2017-07-28 17:09] LABS: Calcium 8.1 mg/dL (8.6-10.3); Potassium 3.7 mEq/L (3.5-5.1)
--- NOTE | 2017-07-28 17:54 | Internal Med Progress Note ---
Date of Encounter: 07/28/17 Time of Encounter: 09:00 - Assessment and plan (1) Aspiration pneumonia Current Visit: Yes Status: Acute Assessment and plan: Patient with witnessed choking episode at assisted living prior to admission, there was concern for aspiration. Chest x-ray with bibasilar opacities concerning for possible aspiration. Patient with audible wheezing noted at this morning, has improved since yesterday. She is no longer requiring supplemental oxygen. Patient is also positive for influenza A. Blood cultures x 2 negative. Initial leukocytosis on arrival, has resolved since. IV vancomycin and Zosyn have been discontinued. Patient has been de-escalate it to by mouth Levaquin 75 mg every 48 hours. Urinary antigens, sputum culture pending Continue O2 as needed to maintain sats greater than 92%. Continue duo nebs Qualifiers: Aspiration pneumonia type: unspecified Laterality: bilateral Lung location: lower lobe of lung Qualified Code(s): J69.0 - Pneumonitis due to inhalation of food and vomit (2) HTN (hypertension) Current Visit: Yes Status: Chronic Assessment and plan: Continue home medications. Monitor vitals per admission orders. Well controlled in hospital. Qualifiers: Hypertension type: essential hypertension Qualified Code(s): I10 - Essential (primary) hypertension (3) Dementia Current Visit: Yes Status: Chronic Assessment and plan: per hx. [place] as well. Alert to self, place and situation. He appears alert and interactive today, answers all questions appropriately. Supportive care. Qualifiers: Dementia type: unspecified type Dementia behavioral disturbance: without behavioral disturbance Qualified Code(s): F03.90 - Unspecified dementia without behavioral disturbance (4) Diabetes mellitus Current Visit: No Status: Acute Assessment and plan: Uncontrolled. Hemoglobin A1c was 9.4% in May. Continue sliding scale insulin, Accu-Cheks before meals at bedtime, diabetic diet. Qualifiers: Diabetes mellitus type: type 2 Diabetes mellitus complication status: without complication Diabetes mellitus snf insulin use: without snf use Qualified Code(s): E11.9 - Type 2 diabetes mellitus without complications (5) Paroxysmal A-fib Current Visit: Yes Status: Acute Assessment and plan: Rate controlled. Continue aspirin and Cardizem. Patient is not on anticoagulation, mostly due to advanced age and increased risk of falls. Continue telemetry. (6) Obesity (BMI 30.0-34.9) Current Visit: Yes Status: Chronic Assessment and plan: Chronic. Continue to attempt to encourage lifestyle modifications. (7) Influenza A Current Visit: Yes Status: Acute Assessment and plan: Flu swab positive on 07/24. Patient reports that he had symptoms for "a couple of days "before. He reports rhinorrhea, cough, general fatigue. Symptoms have improved per patient. He was not within the window to start Tamiflu on arrival Continue to treat symptoms. (8) DVT prophylaxis Current Visit: Yes Status: Acute Assessment and plan: Heparin subcutaneous daily. (9) Hyperlipidemia Current Visit: Yes Status: Chronic Assessment and plan: Chronic. Continue home medications. Qualifiers: Hyperlipidemia type: unspecified Qualified Code(s): E78.5 - Hyperlipidemia , unspecified - Time Spent With Patient less than 15 minutes - Subjective Interval history: Patient was seen and assessed at bedside at 0900 AM. He is alert and oriented 3 and answers questions appropriately. He sitting up in chair at bedside eating breakfast and states that he is feeling better. He denies chest pain, nausea, vomiting, diarrhea, productive cough, headache, or abdominal pain. - Constitutional Vitals: Temp Pulse Resp BP Pulse Ox 97.6 F 64 16 125/80 99 07/28/17 16:14 07/28/17 16:14 07/28/17 16:47 07/28/17 16:14 07/28/17 16:47 General appearance: Present: cooperative, A&O X 3, morbidly obese, pleasant, no acute distress, answers questions appropriately - Head Head exam: Present: atraumatic, normal inspection, normocephalic - Eye Eye exam: Present: conjuntiva pink, sclera anicteric - Neck Neck exam general surgery: Present: supple, trachea midline. Absent: lymphadenopathy - Respiratory Respiratory exam: Present: decreased breath sounds, CTAB. Absent: accessory muscle use, chest wall tenderness, rales, respiratory distress, rhonchi, wheezes - Cardiovascular Cardiovascular exam: Present: RRR, +S1, +S2. Absent: diastolic murmur, gallop, rubs, systolic murmur - GI/Abdominal GI/Abdominal exam: Present: distended, normal bowel sounds, soft. Absent: tenderness - Extremities Exam Extremities exam: Present: normal capillary refill, warm, radial pulses palpable and symmetrical. Absent: calf tenderness, cyanotic, pedal edema - Neurological Exam Neurological exam: Present: alert, oriented X3, no focal deficits. Absent: facial droop, speech deficit - Skin Skin exam: Present: dry, intact, normal color, warm. Absent: rash Internal Medicine: Result - Labs CBC & Chem 7: 07/28/17 05:00 07/28/17 16:05 Labs: Short CBC 07/28/17 Range/Units 05:00 WBC 5.3 (4.3-11.1) K/mcL Hgb 14.4 (12.9-16.9) g/dL Hct 41.7 (37.5-50.1) % Plt Count 151 (140-400) K/mcL Neutrophils # 3.4 (1.6-8.9) K/mcL BMP 07/28/17 07/28/17 05:00 16:05 Sodium 141 141 Potassium 3.6 3.7 Chloride 107 111 H Carbon Dioxide 25 24 BUN 28 H 27 H Creatinine 2.41 H 2.26 H Glucose 225 H 228 H Calcium 8.7 8.1 L Consult Discharge Plan - Plan Referrals: Augustina Cyr [Primary Care Provider] -
[2017-07-28] MEDS ORDERED: Levofloxacin 750 MG/150 ML 750 MG/150 ML BAG IVPB SCH (19:00)
[2017-07-29] MEDS: Ipratropium/Albuterol Neb 3 ML IH SCH ×6 (03:24→23:05)
[2017-07-29] MEDS: *HR* Heparin 5,000 UNIT/ML VIAL SQ SCH ×2 (05:34→18:10)
[2017-07-29 07:50] LABS: Basophils % 0.5 %; Eosinophils # 0.1 K/mcL (0.0-0.6); Eosinophils % 2.1 %; Hematocrit 43.2 % (37.5-50.1); Hemoglobin 14.5 g/dL (12.9-16.9); Immature Granulocytes % 0.4 % (0-4); Lymphocytes # 1.1 K/mcL (0.6-4.6); Lymphocytes % 20.2 %; Mean Corpuscular HGB Conc 33.6 g/dL (31.6-35.5); Mean Corpuscular Hemoglobin 29.3 pg (28.0-33.3); Mean Corpuscular Volume 87.3 fL (83.0-100.0); Mean Platelet Volume 10.6 fL (9.4-12.4); Monocytes # 0.5 K/mcL (0.0-1.3); Monocytes % 8.2 %; Neutrophils # 3.8 K/mcL (1.6-8.9); Platelet Count 179 K/mcL (140-400); Red Blood Count 4.95 M/mcL (4.19-5.50); Red Cell Distribution Width 13.2 % (11.5-14.5); Segmented Neutrophils % 68.6 %
[2017-07-29] MEDS ORDERED: Vancomycin 1,000 MG in D5% in Water 250 ML IVPB SCH (08:00)
[2017-07-29 08:12] LABS: Calcium 8.8 mg/dL (8.6-10.3); Potassium 3.8 mEq/L (3.5-5.1)
[2017-07-29] MEDS: Insulin LISPRO 300 UNITS/3 ML VIAL SQ SCH ×4 (08:28→20:46)
[2017-07-29] MEDS: Diltiazem CD (24hr) 120 MG CAPSULE PO SCH (08:29)
[2017-07-29] MEDS: Isosorbide MONOnitrate (24 HR) 30 MG TAB.ER.24H PO SCH (08:29)
[2017-07-29] MEDS: Carbidopa/Levodopa 25/100 TABLET PO SCH ×3 (08:29→20:48)
[2017-07-29] MEDS: Aspirin Enteric Coated 81 MG Tablet PO SCH (08:29)
[2017-07-29] MEDS ORDERED: levoFLOXacin 750 MG TABLET PO SCH (09:00)
[2017-07-29] MEDS: 0.9 % Sodium Chloride 1,000 ML IVC SCH ×2 (12:02→16:06)
--- NOTE | 2017-07-29 14:38 | Internal Med Progress Note ---
Date of Encounter: 07/29/17 Time of Encounter: 09:20 - Assessment and plan (1) Aspiration pneumonia Current Visit: Yes Status: Acute Assessment and plan: Patient with witnessed choking episode at assisted living prior to admission, there was concern for aspiration. Chest x-ray with bibasilar opacities concerning for possible aspiration. Patient with audible wheezing noted at this morning, has improved since yesterday. She is no longer requiring supplemental oxygen. Patient is also positive for influenza A. Blood cultures x 2 negative. Initial leukocytosis on arrival, has resolved since. IV vancomycin and Zosyn have been discontinued. Antibiotics have been de- escalated to by mouth Levaquin 75 mg every 48 hours. Urinary antigens, sputum culture pending Continue O2 as needed to maintain sats greater than 92%. Continue duo nebs Qualifiers: Aspiration pneumonia type: unspecified Laterality: bilateral Lung location: lower lobe of lung Qualified Code(s): J69.0 - Pneumonitis due to inhalation of food and vomit (2) HTN (hypertension) Current Visit: Yes Status: Chronic Assessment and plan: Chronic. Continue home medications. Monitor vitals per admission orders. Well controlled in hospital. Qualifiers: Hypertension type: essential hypertension Qualified Code(s): I10 - Essential (primary) hypertension (3) Dementia Current Visit: Yes Status: Chronic Assessment and plan: Chronic. [place] as well. Alert to self, place and situation. He appears alert and interactive today, answers all questions appropriately. Supportive care. Qualifiers: Dementia type: unspecified type Dementia behavioral disturbance: without behavioral disturbance Qualified Code(s): F03.90 - Unspecified dementia without behavioral disturbance (4) Diabetes mellitus Current Visit: No Status: Acute Assessment and plan: Poorly controlled. Hemoglobin A1c was 9.4% in May. Continue sliding scale insulin, Accu-Cheks before meals at bedtime, diabetic diet. Qualifiers: Diabetes mellitus type: type 2 Diabetes mellitus complication status: without complication Diabetes mellitus long-term insulin use: without terminal press operator use Qualified Code(s): E11.9 - Type 2 diabetes mellitus without complications (5) Paroxysmal A-fib Current Visit: Yes Status: Acute Assessment and plan: Rate controlled. Continue aspirin and Cardizem. Patient is not on anticoagulation, mostly due to advanced age and increased risk of falls. Continue telemetry. (6) Obesity (BMI 30.0-34.9) Current Visit: Yes Status: Chronic Assessment and plan: Chronic. Continue to attempt to encourage lifestyle modifications. (7) Influenza A Current Visit: Yes Status: Acute Assessment and plan: Flu swab positive on 07/24. Patient reports that he had symptoms for "a couple of days "before. He reports rhinorrhea, cough, general fatigue. Symptoms have improved per patient. He was not within the window to start Tamiflu on arrival. Continue to treat symptoms. Symptoms have resolved. (8) DVT prophylaxis Current Visit: Yes Status: Acute Assessment and plan: Heparin subcutaneous daily. Up to chair BID (9) Hyperlipidemia Current Visit: Yes Status: Chronic Assessment and plan: Chronic. Continue home medications. Qualifiers: Hyperlipidemia type: unspecified Qualified Code(s): E78.5 - Hyperlipidemia , unspecified - Time Spent With Patient less than 15 minutes - Subjective Interval history: Patient was seen and assessed at bedside at 0920 AM. He is alert and oriented 3 and answers questions appropriately. He sitting up in chair at bedside eating breakfast and states that he is feeling better and wants to go home to his . I discussed with him and his renal function has not really improved and that we are going to continue to monitor him. He was agreeable. He denies chest pain, nausea, vomiting, diarrhea, productive cough, headache, or abdominal pain. - Constitutional Vitals: Temp Pulse Resp BP Pulse Ox 98.2 F 63 16 164/68 94 07/29/17 10:45 07/29/17 10:45 07/29/17 11:50 07/29/17 10:45 07/29/17 11:50 General appearance: Present: cooperative, A&O X 3, morbidly obese, pleasant, no acute distress, answers questions appropriately - Head Head exam: Present: atraumatic, normal inspection, normocephalic - Eye Eye exam: Present: normal appearance, conjuntiva pink, sclera anicteric - Neck Neck exam general surgery: Present: supple, trachea midline. Absent: lymphadenopathy, tenderness - Respiratory Respiratory exam: Present: decreased breath sounds, wheezes. Absent: accessory muscle use, chest wall tenderness, CTAB, rales, respiratory distress, rhonchi - Cardiovascular Cardiovascular exam: Present: RRR, +S1, +S2. Absent: diastolic murmur, gallop, rubs, systolic murmur - GI/Abdominal GI/Abdominal exam: Present: distended, normal bowel sounds, soft. Absent: hepatomegaly, tenderness - Extremities Exam Extremities exam: Present: normal inspection, warm, radial pulses palpable and symmetrical. Absent: calf tenderness, cyanotic, pedal edema, tenderness - Neurological Exam Neurological exam: Present: alert, oriented X3, no focal deficits. Absent: facial droop, speech deficit - Skin Skin exam: Present: dry, intact, normal color, warm. Absent: rash Internal Medicine: Result - Labs CBC & Chem 7: 07/29/17 07:34 07/29/17 07:34 Labs: Short CBC 07/29/17 Range/Units 07:34 WBC 5.6 (4.3-11.1) K/mcL Hgb 14.5 (12.9-16.9) g/dL Hct 43.2 (37.5-50.1) % Plt Count 179 (140-400) K/mcL Neutrophils # 3.8 (1.6-8.9) K/mcL BMP 07/28/17 07/29/17 16:05 07:34 Sodium 141 142 Potassium 3.7 3.8 Chloride 111 H 112 H Carbon Dioxide 24 22 L BUN 27 H 24 H Creatinine 2.26 H 2.13 H Glucose 228 H 284 H Calcium 8.1 L 8.8 Consult Discharge Plan - Plan Referrals: Augustina Cyr [Primary Care Provider] -
[2017-07-30] MEDS: Ipratropium/Albuterol Neb 3 ML IH SCH ×3 (03:24→12:37)
[2017-07-30 05:10] LABS: Calcium 8.7 mg/dL (8.6-10.3); Potassium 3.5 mEq/L (3.5-5.1)
[2017-07-30] MEDS: *HR* Heparin 5,000 UNIT/ML VIAL SQ SCH (05:17)
[2017-07-30] MEDS: Diltiazem CD (24hr) 120 MG CAPSULE PO SCH (08:17)
[2017-07-30] MEDS: Isosorbide MONOnitrate (24 HR) 30 MG TAB.ER.24H PO SCH (08:18)
[2017-07-30] MEDS: Carbidopa/Levodopa 25/100 TABLET PO SCH (08:18)
[2017-07-30] MEDS: Aspirin Enteric Coated 81 MG Tablet PO SCH (08:18)
[2017-07-30] MEDS: Insulin LISPRO 300 UNITS/3 ML VIAL SQ SCH ×2 (08:19→12:53)
[2017-07-30] MEDS ORDERED: amLODIPine 5 MG TABLET PO SCH (10:15)
--- NOTE | 2017-07-30 10:26 | Discharge Summary ---
Date of Encounter: 07/30/17 Time of Encounter: 09:15 - Discharge Diagnosis (1) Aspiration pneumonia Priority: Primary Status: Acute Comments: Patient admitted after witnessed choking episode at [facility]. Chest x-ray with bibasilar opacities concerning for aspiration. Patient treated with Levaquin, Zosyn, IV vancomycin. Patient has improved over the course of visit. He has wheezing heard in the posterior bases this morning, continuing to improve. Patient is no longer requiring supplemental oxygen. He was also positive for flu a. Blood cultures 2 were negative. The leukocytosis has resolved. IV and by mouth antibiotics have been DC'd. I have spoken with Bernie Leach, who works with Dr. Cyr in the nurse practitioners at [facility] in [place], she is aware of patient's condition and need for follow-up. Patient will be sent home with nebulizer and DuoNeb nebs to use when necessary for wheezing. Qualifiers: Aspiration pneumonia type: unspecified Laterality: bilateral Lung location: lower lobe of lung Qualified Code(s): J69.0 - Pneumonitis due to inhalation of food and vomit (2) HTN (hypertension) Priority: Secondary Status: Chronic Comments: Lisinopril has been stopped due to renal function. I started Norvasc 5 mg by mouth daily in its place. Mrs. Leach is aware of medication change and need for monitoring. She will have nurses monitor blood pressure closely over the weekend until he can follow up with Dr. Cyr on Wednesday. Qualifiers: Hypertension type: essential hypertension Qualified Code(s): I10 - Essential (primary) hypertension (3) Dementia Priority: Secondary Status: Chronic Comments: Chronic. He is alert to name, place. He is alert, interactive, pleasant. Continue to provide supportive care. Qualifiers: Dementia type: unspecified type Dementia behavioral disturbance: without behavioral disturbance Qualified Code(s): F03.90 - Unspecified dementia without behavioral disturbance (4) Diabetes mellitus Priority: Secondary Status: Chronic Comments: Diabetes is poorly controlled. A1c was 9.4% in May. Continue home medications, Accu-Chek regimen. Continue to encourage ADA diet. Qualifiers: Diabetes mellitus type: type 2 Diabetes mellitus complication status: without complication Diabetes mellitus assistant terminal manager insulin use: without retirement use Qualified Code(s): E11.9 - Type 2 diabetes mellitus without complications (5) Paroxysmal A-fib Priority: Secondary Status: Chronic Comments: Rate controlled. Continue aspirin and Cardizem at home. Patient is not on anticoagulant, most likely due to advanced age and increased risk of falls. Follow with cardiology and primary care. (6) Obesity (BMI 30.0-34.9) Priority: Secondary Status: Chronic Comments: Chronic. Attempt to encourage lifestyle modifications. (7) Influenza A Priority: Secondary Status: Acute Comments: Patient has positive flu swab on July 24. Patient reported that he had had symptoms for a couple days before. Symptoms appear to have resolved. Patient was not treated with Tamiflu due to duration of illness prior to presentation. Continue to treat symptoms as necessary. (8) DVT prophylaxis Priority: Secondary Status: Acute Comments: Heparin subcutaneously twice a day. Patient was up in chair. (9) Hyperlipidemia Priority: Secondary Status: Chronic Comments: Chronic. Continue home medications. Qualifiers: Hyperlipidemia type: unspecified Qualified Code(s): E78.5 - Hyperlipidemia , unspecified (10) Weakness Priority: Secondary Status: Chronic Comments: Patient with weakness and some physical deconditioning secondary to illness and hospitalization. Patient was evaluated by physical therapy and occupational therapy, they recommended short-term rehabilitation at SNF to improve safety and independence with functional mobility towards prior level of functioning. Patient declined SNF and instead will have to [facility], also will refer for physical therapy. (11) TERESA (acute kidney injury) Priority: Secondary Status: Acute Comments: Patient presented with mild AK I from assisted living, most likely due to poor by mouth intake and influenza. Patient is being treated for aspiration pneumonia with IV vancomycin, IV Zosyn, and IV Levaquin. Pharmacy was dosing vancomycin and Levaquin was every 48 hours, renal function declined. Patient received gentle IV fluid hydration and renal function is improving. Serum creatinine 1.85 today, GFR is 35. Retroperitoneal ultrasound was completed that showed no evidence of hydronephrosis, borderline diffuse urinary bladder wall thickening, no acute findings. I have spoken with Bernie Leach at [facility] regarding my concern that patient gets adequate follow-up and monitoring of renal function. She states that Dr. Cyr is there today, also will be there on Wednesday and there are nurse practitioners available, as well. She states the patient will receive labs on Wednesday and adequate follow-up throughout. - Discharge Medications Prescriptions: amLODIPine [Norvasc] 5 mg PO DAILY #10 tablet Home Medications: Acetaminophen 650 mg PO Q4H PRN 03/09/17 [History] Albuterol Neb [Proventil Neb] 2.5 mg IH BID 03/09/17 [History] Albuterol Neb [Proventil Neb] 2.5 mg IH BID PRN 03/09/17 [History] Aspirin [Lo-Dose Aspirin EC] 81 mg PO QAM 03/09/17 [History] Atorvastatin Calcium [Lipitor] 40 mg PO DAILY 03/09/17 [History] Carbidopa/Levodopa [Carbidopa-Levodopa 25-100 Tab] 1 each PO TID 03/09/17 [ History] Diltiazem CD (24hr) [Cardizem CD] 120 mg PO QAM 03/09/17 [History] Donepezil HCl [Aricept] 10 mg PO HS 03/09/17 [History] Isosorbide MONOnitrate (24 HR) [Imdur] 30 mg PO QAM 03/09/17 [History] Linagliptin [Tradjenta] 5 mg PO QAM 03/09/17 [History] Memantine [Namenda] 10 mg PO BID 03/09/17 [History] Midodrine HCl 2.5 mg PO BID 03/09/17 [History] Montelukast [Singulair] 10 mg PO DAILY 03/09/17 [History] Scheller-3 Fatty Acids [Fish Oil Concentrate] 1,000 mg PO DAILY 03/09/17 [History] Omeprazole [PriLOSEC] 20 mg PO DAILY 03/09/17 [History] Polyethylene Glycol 3350 [MiraLAX] 17 gm PO DAILY PRN 03/09/17 [History] Sertraline [Zoloft] 25 mg PO HS 03/09/17 [History] Cholecalciferol (D-3) [Vitamin D] 2,000 unit PO DAILY 07/25/17 [History] Insulin ASPART [NovoLOG] 10 unit SQ TID 07/25/17 [History] Insulin Glargine [Lantus] 15 unit SQ HS 07/25/17 [History] amLODIPine [Norvasc] 5 mg PO DAILY #10 tablet 07/30/17 [Rx] Allergies/Adverse Reactions: 3 Allergy/AdvReac Type Severity Reaction Status Date / Time cimetidine [From Tagamet] AdvReac Irritable Verified 03/09/17 13:01 citalopram [From Celexa] AdvReac Nausea Verified 03/09/17 12:29 metformin AdvReac Diarrhea Verified 03/09/17 12:29 Procedures/tests Complete & Pending: Procedures Performed prior 72 hours Category Date Time Status Retroperitoneal Ultrasound - Complete [US Exams 07/29/17 17:00 Completed retroperitoneal comp] [US] Stat Date of admission: 07/25/17 15:12 Primary care physician: Augustina Cyr Consults: 07/26/17 11:11 Consult to Occupational Therapy [CONS] Routine Comment: Evaluate, develop and implement POC Reason for Consult: evaluation Consult to Physical Therapy [CONS] Routine Comment: Evaluate, develop and implement POC Reason for Consult: evaluation 07/27/17 07:38 Consult to Television News Video Editor [CONS] Routine Reason for SW Consult: PT/OT recommend SNF for rehab. Pt is in asst living at [facility]. Discharging clinician: Kindra Lopez Anticipated date of discharge: 07/30/17 - Patient Status Disposition: Home Health Service Condition: Good Functional capacity at discharge: uses cane/walker Overall status at discharge: patient is progressing back to baseline - Discharge Instructions Follow Up With: Augustina Cyr [Primary Care Provider] - 08/06/17 9:40 am - Diet and Activity Activity: as per physical therapy Diet: diabetic diet, low fat, low cholesterol, low salt diet Hospital course: Mr. Gutierrez is a 81 year old male with past medical history of uncontrolled diabetes, hypertension, dementia, A. fib, hyperlipidemia. [facility] and was treated for aspiration pneumonia with IV vancomycin, IV Zosyn, IV Levaquin every 48 hours. The patient presented with mild TERESA about worsened with the IV antibiotics. The antibiotics were stopped and he finished his by mouth course of Levaquin every 48 hours. Lisinopril was also stopped and Norvasc was added. I have spoken with staff at [facility] regarding ensuring patient receives follow-up with physician for renal function and for hypertension. Otherwise, his labs and vital signs are stable and within normal limits. He remains confused, however this is his baseline. Patient is stable and appropriate for discharge. - Time Spent with Patient Total time spent providing and/or coordinating discharge services: Less than 30 minutes - Constitutional Vitals: Temp Pulse Resp BP Pulse Ox 97.9 F 68 17 177/84 98 07/30/17 07:47 07/30/17 07:47 07/30/17 07:47 07/30/17 07:47 07/30/17 07:47 General appearance: Present: cooperative, A&O X 3, morbidly obese, pleasant, no acute distress, answers questions appropriately - Head Head exam: Present: atraumatic, normal inspection, normocephalic - Eye Eye exam: Present: normal appearance, conjuntiva pink, sclera anicteric - Neck Neck exam general surgery: Present: supple, trachea midline. Absent: lymphadenopathy, tenderness - Respiratory Respiratory exam: Present: wheezes. Absent: accessory muscle use, chest wall tenderness, CTAB, rales, respiratory distress, rhonchi - Cardiovascular Cardiovascular exam: Present: RRR, +S1, +S2. Absent: diastolic murmur, gallop, rubs, systolic murmur - GI/Abdominal GI/Abdominal exam: Present: normal bowel sounds, soft, no peritoneal signs. Absent: distended, hepatomegaly, tenderness - Extremities Exam Extremities exam: Present: normal capillary refill, warm, radial pulses palpable and symmetrical. Absent: calf tenderness, cyanotic, pedal edema, tenderness - Neurological Exam Neurological exam: Present: alert, oriented X3, no focal deficits. Absent: facial droop, speech deficit - Skin Skin exam: Present: dry, intact, normal color, warm. Absent: rash
[2017-07-30 12:20] VITALS: BP 152/59
[2017-07-30] MEDS: 0.9 % Sodium Chloride 1,000 ML IVC SCH (12:53)
== END 2017-07-30 14:30 | disposition home health service (06) | DRG 178 ==
LOC: EMEROO 18:43 → 3BNU 18:43
PROVIDERS: ADMIT Nurse Practitioner; ATTEND Registered Nurse

== ENCOUNTER 2018-05-24 17:46 | Observation (INO) ==
[2018-05-24] MEDS ORDERED: Isovue-370 500 ML INFUS..BTL IV ONE (18:04)
--- NOTE | 2018-05-24 18:09 | Emergency Department Note ---
Disposition Clinical Impression: Pneumonia Qualifiers: Pneumonia type: due to unspecified organism Laterality: left Lung location: lower lobe of lung Qualified Code(s): J18.1 - Lobar pneumonia, unspecified organism Alzheimer's dementia Qualifiers: Alzheimer's disease onset: unspecified onset Dementia behavioral disturbance: without behavioral disturbance Qualified Code(s): G30.9 - Alzheimer's disease, unspecified Disposition: Admitted As Inpatient Condition: Good General Adult HPI - General Stated complaint: Belly Pain Time Seen by Provider: 05/24/18 17:47 Source: patient, family, EMS Limitations: no limitations Nursing Notes Reviewed: Yes Vital Signs Reviewed: Yes - History of Present Illness HPI Narrative: 82-year-old male with history of dementia who presents the emergency department with complaints of left-sided chest wall pain. Patient has been coughing significantly for the past 2 days and was sent in today after having a coughing fit with severe left-sided chest pain. He does have a history of dysphasia secondary to his Alzheimer's and frequently develops known pneumonia as a result. He denies any fever, chills but does intimately feel short of breath. He otherwise has no nausea, vomiting, abdominal pain, dysuria, hematuria, const ipation, headache, visual changes, or diarrhea. Pain Scale: 7 - Related Data Home Medications Medication Instructions Recorded Confirmed RX: Acetaminophen 650 mg PO Q4H PRN 03/09/17 05/24/18 RX: Albuterol Neb [Proventil Neb] 2.5 mg IH BID PRN 03/09/17 05/24/18 RX: Aspirin [Lo-Dose Aspirin EC] 81 mg PO QAM 03/09/17 05/24/18 RX: Carbidopa/Levodopa 1 each PO TID 03/09/17 05/24/18 [Carbidopa-Levodopa 25-100 Tab] RX: Isosorbide MONOnitrate (24 HR) 30 mg PO QAM 03/09/17 05/24/18 [Imdur] RX: Linagliptin [Tradjenta] 5 mg PO QAM 03/09/17 05/24/18 RX: Memantine [Namenda] 10 mg PO BID 03/09/17 05/24/18 RX: Midodrine HCl 2.5 mg PO BID 03/09/17 05/24/18 RX: Montelukast [Singulair] 10 mg PO DAILY 03/09/17 05/24/18 RX: [place]-3 Fatty Acids [Fish Oil 1,000 mg PO DAILY 03/09/17 05/24/18 Concentrate] RX: Polyethylene Glycol 3350 17 gm PO DAILY PRN 03/09/17 05/24/18 [MiraLAX] RX: Cholecalciferol (D-3) [Vitamin 5,000 unit PO DAILY 07/25/17 05/24/18 D] RX: Insulin ASPART [NovoLOG] 15 unit SQ TID 07/25/17 05/24/18 RX: Insulin Glargine [Lantus] 25 unit SQ HS 07/25/17 05/24/18 Fluticasone Propionate [Allergy 1 spr NS DAILY 05/24/18 05/24/18 Relief] Furosemide [Lasix] 20 mg PO DAILY 05/24/18 05/24/18 RX: amLODIPine [Norvasc] 10 mg PO DAILY 05/24/18 05/24/18 RX: traZODone [TraZODone] 25 mg PO HS 05/24/18 05/24/18 Allergies Allergy/AdvReac Type Severity Reaction Status Date / Time cimetidine [From Tagamet] AdvReac Irritable Verified 03/09/17 13:01 citalopram [From Celexa] AdvReac Nausea Verified 03/09/17 12:29 metformin AdvReac Diarrhea Verified 03/09/17 12:29 All systems ED: reviewed and negative except as stated. Review of Systems: As Per HPI Constitutional: Denies: fever, chills, weakness, weight change Cardiovascular: Reports: dyspnea on exertion, orthopnea, edema. Denies: chest pain, palpitations, syncope Respiratory: Reports: cough, dyspnea. Denies: wheezes, hemoptysis Gastrointestinal: Reports: abdominal pain. Denies: nausea, vomiting, diarrhea, constipation, hematemesis, melena Genitourinary: Denies: urgency, dysuria, frequency, hematuria Musculoskeletal: Denies: back pain, neck pain, arthralgia, myalgia Neurological: Denies: headache, weakness, numbness, paresthesias, confusion, abnormal gait, vertigo Psychiatric: Denies: anxiety, depression, suicidal thoughts, homicidal thoughts, auditory hallucinations, visual hallucinations Endocrine: Denies: fatigue Past Medical History - Past Medical History Attestation: Yes The following information was validated with the patient. Source: patient, old records reviewed, obtained from family Medical history: Reports: atrial fibrillation, CHF, dementia, diabetes, hyperlipidemia, hypertension, renal disease Surgical history: Reports: pacemaker/AICD Psychiatric history: Reports: no psych history - Social History Smoking Status: Never smoker Smokeless Tobacco Status: No Alcohol use: Reports: none Drug use: Reports: none Physical Exam - General Limitations: other (Baseline dementia and patient is hard of hearing) General appearance: alert, in no apparent distress - Head Head exam: atraumatic, normocephalic - Eye Eye exam: Present: normal appearance. Absent: scleral icterus - ENT ENT exam: normal exam, normal oropharynx - Neck Neck exam: Present: normal inspection. Absent: tenderness, meningismus - Chest Chest inspection: Present: normal inspection, tenderness - Expanded Chest Exam Breast: tenderness: left (Left lateral ribs) - Respiratory Respiratory exam: Present: normal lung sounds bilaterally, prolonged expiratory phase - Cardiovascular Cardiovascular exam: Present: regular rate, normal rhythm, normal heart sounds - Abdominal Exam Abdominal exam: Present: soft, Non-Tender, normal bowel sounds. Absent: distention, guarding, rebound - Extremities Exam Extremities exam: Present: pedal edema (2+) - Neurological Exam Neurological exam: Present: alert, oriented X3 - Psychiatric Psychiatric exam: Present: normal affect, normal mood - Skin Skin exam: Present: warm, dry, intact Course Vital Signs Temperature 98.6 F 05/24/18 17:50 Pulse Rate 69 05/24/18 17:50 Respiratory Rate 18 05/24/18 17:50 Blood Pressure 174/69 05/24/18 17:50 O2 Sat by Pulse Oximetry 94 05/24/18 17:50 Temperature 98.6 F 05/24/18 17:50 Pulse Rate 78 05/24/18 20:58 Respiratory Rate 18 05/24/18 19:26 Blood Pressure 156/79 05/24/18 20:58 O2 Sat by Pulse Oximetry 92 05/24/18 20:58 Oxygen Delivery Oxygen Delivery Room Air Medical Decision Making - MDM Narrative Medical decision making narrative: 82-year-old male with history of dysphasia and left-sided chest pain who presents with symptoms consistent with his previous episodes of pneumonia. Initial workup including CBC, BMP, BNP, EKG and chest x-ray obtained. CBC and BMP unremarkable. BNP 15. Troponin less than 0.3. Chest x-ray reveals left- sided basilar pneumonia. EKG unremarkable for acute changes. Given the patient's significant history of aspiration and dysphagia secondary to his Alzheimer's patient will require admission for coverage of aspiration pneumonia. Will give the patient Zosyn 4.5g IV. Patient accepted by Dr. Herring. Patient and family agree with and understand course of treatment plan including plan for admission. All questions answered. - Medical Records Medical records reviewed: Yes I reviewed the patient's medical records. - Lab Data Lab results reviewed: Yes I reviewed the patient's lab results. Result diagrams: 05/24/18 18:28 05/24/18 18:28 Lab Results 05/24/18 05/24/18 05/24/18 Range/Units 18:28 18:28 18:28 WBC 8.7 (4.3-11.1) K/mcL RBC 5.61 H (4.19-5.50) M/mcL Hgb 16.5 (12.9-16.9) g/dL Hct 47.6 (37.5-50.1) % MCV 84.8 (83.0-100.0) fL MCH 29.4 (28.0-33.3) pg MCHC 34.7 (31.6-35.5) g/dL RDW 12.9 (11.5-14.5) % Plt Count 213 (140-400) K/mcL MPV 10.9 (9.4-12.4) fL Immature Gran % 0.8 (0-4) % Seg Neutrophils % 63.2 % Lymphocytes % 24.8 % Monocytes % 7.3 % Eosinophils % 3.2 % Basophils % 0.7 % Neutrophils # 5.5 (1.6-8.9) K/mcL Lymphocytes # 2.2 (0.6-4.6) K/mcL Monocytes # 0.6 (0.0-1.3) K/mcL Eosinophils # 0.3 (0.0-0.6) K/mcL Basophils # 0.1 (0.0-0.2) K/mcL Sodium 139 (136-145) mEq/L Potassium 4.0 (3.5-5.1) mEq/L Chloride 102 (98-107) mEq/L Carbon Dioxide 25 (23-29) mEq/L BUN 20 (8-23) mg/dL Creatinine 0.95 (0.70-1.30) mg/dL Est GFR ( Amer) > 60 (> 60) Est GFR (Non-Af Amer) > 60 (> 60) BUN/Creatinine Ratio 21 (6-26) Glucose 257 H (70-105) mg/dL Calculated Osmolality 299 (280-300) Lactic Acid (0.5-2.2) mmol/L Calcium 9.6 (8.6-10.3) mg/dL Troponin I < 0.03 (< 0.04) ng/mL B-Natriuretic Peptide 15 (Less than 100) pg/mL 05/24/18 Range/Units 18:28 WBC (4.3-11.1) K/mcL RBC (4.19-5.50) M/mcL Hgb (12.9-16.9) g/dL Hct (37.5-50.1) % MCV (83.0-100.0) fL MCH (28.0-33.3) pg MCHC (31.6-35.5) g/dL RDW (11.5-14.5) % Plt Count (140-400) K/mcL MPV (9.4-12.4) fL Immature Gran % (0-4) % Seg Neutrophils % % Lymphocytes % % Monocytes % % Eosinophils % % Basophils % % Neutrophils # (1.6-8.9) K/mcL Lymphocytes # (0.6-4.6) K/mcL Monocytes # (0.0-1.3) K/mcL Eosinophils # (0.0-0.6) K/mcL Basophils # (0.0-0.2) K/mcL Sodium (136-145) mEq/L Potassium (3.5-5.1) mEq/L Chloride (98-107) mEq/L Carbon Dioxide (23-29) mEq/L BUN (8-23) mg/dL Creatinine (0.70-1.30) mg/dL Est GFR ( Amer) (> 60) Est GFR (Non-Af Amer) (> 60) BUN/Creatinine Ratio (6-26) Glucose (70-105) mg/dL Calculated Osmolality (280-300) Lactic Acid 1.6 (0.5-2.2) mmol/L Calcium (8.6-10.3) mg/dL Troponin I (< 0.04) ng/mL B-Natriuretic Peptide (Less than 100) pg/mL - Radiology Data Radiology results reviewed: Yes I reviewed the patient's radiology results. - EKG Data EKG #1 EKG attestation: Yes I reviewed and interpreted this EKG. EKG results narrative: Atrial paced rhythm. Rate of 66. Left axis deviation. No evidence of significant ST elevation. When compared with previous from 10/04/17 there is no significant change. Attestation Statement - Attestation Attestation: Resident Attestation: I examined this patient and my medical decision making was reviewed with the Resident Physician. I agree with the documented findings, disposition and treatment plan as described except to the extent set forth below. We independently had [id number] contact with the patient. Resident physician Dr. Mack. Patient presents to emergency department today for evaluation of flank pain. Patient has a history of dementia as well as previous dysphagia. Patient was coughing during dinner. Symptoms got worse. Brought in with family for further evaluation. He has had symptoms like this before with pneumonia. EKG, x-ray, blood work have been ordered. Blood work is unremarkable however the x-ray does show a left lower lobe pneumonia. Given his choking history as well as what appears to be episodes of aspiration pneumonia in the past. Patient will be admitted for IV antibiotics. Patient at this time does not appear to be in acute respiratory distress. His respiratory bed with no significant oxygen requirement. His wheezing which he presented with as moderate diffuse wheezing has improved to mild intermittent wheezing.
[2018-05-24] MEDS ORDERED: Ipratropium/Albuterol Neb 3 ML IH ONE (18:22)
[2018-05-24] MEDS ORDERED: methylPREDNISolone 125 MG/2 ML VIAL IVP STA (18:23)
[2018-05-24 18:45] LABS: Basophils # 0.1 K/mcL (0.0-0.2); Basophils % 0.7 %; Eosinophils # 0.3 K/mcL (0.0-0.6); Eosinophils % 3.2 %; Hematocrit 47.6 % (37.5-50.1); Hemoglobin 16.5 g/dL (12.9-16.9); Immature Granulocytes % 0.8 % (0-4); Lymphocytes # 2.2 K/mcL (0.6-4.6); Lymphocytes % 24.8 %; Mean Corpuscular HGB Conc 34.7 g/dL (31.6-35.5); Mean Corpuscular Hemoglobin 29.4 pg (28.0-33.3); Mean Corpuscular Volume 84.8 fL (83.0-100.0); Mean Platelet Volume 10.9 fL (9.4-12.4); Monocytes # 0.6 K/mcL (0.0-1.3); Monocytes % 7.3 %; Neutrophils # 5.5 K/mcL (1.6-8.9); Platelet Count 213 K/mcL (140-400); Red Blood Count 5.61 M/mcL (4.19-5.50); Red Cell Distribution Width 12.9 % (11.5-14.5); Segmented Neutrophils % 63.2 %
[2018-05-24 19:10] LABS: Troponin I < 0.03 ng/mL (< 0.04)
[2018-05-24 19:29] LABS: BUN/Creatinine Ratio 21 (6-26); Blood Urea Nitrogen 20 mg/dL (8-23); Calcium 9.6 mg/dL (8.6-10.3); Carbon Dioxide 25 mEq/L (23-29); Chloride 102 mEq/L (98-107); Glucose 257 mg/dL (70-105); Osmolality,Calculated 299 (280-300); Sodium 139 mEq/L (136-145); eGFR For Non-African Americans > 60 (> 60)
[2018-05-24] MEDS ORDERED: Piperacillin/Tazobactam 3.375 GM in 0.9 % Sodium Chloride Mini Bag 100 ML IVPB ONE (20:12)
[2018-05-24] MEDS ORDERED: *HR* Dextrose 50 % in Water (Syg) 50 ML SYRINGE IVP PRN (20:50)
[2018-05-24] MEDS ORDERED: Dextrose Gel 15 GM/37.5 ML TUBE PO PRN ×2 (20:50)
[2018-05-24] MEDS ORDERED: D5% in Water 1,000 ML IVC PRN (20:50)
[2018-05-24] MEDS ORDERED: Acetaminophen 325 MG TABLET PO PRN (20:55)
[2018-05-24] MEDS ORDERED: Naloxone 0.4 MG/ML INJ IVP PRN (20:55)
[2018-05-24] MEDS ORDERED: Ipratropium/Albuterol Neb 3 ML IH PRN (20:59)
--- NOTE | 2018-05-24 21:00 | Internal Med History&Physical ---
Date of Encounter: 05/25/18 Time of Encounter: 20:57 Internal Medicine - H&P: HPI Chief complaint: Cough Admitted From: Emergency Dept Plans for Post Hospital Care: Home History of present illness: Mr. Gutierrez is a 82 year old male with a PMH of dementia, Afib, pacer/AICD, CHF, HTN, and DM who presented to the ED from his assisted living after he had experienced left-sided chest pain with no radiation. The patient apparently choked on food earlier in the evening and experienced significant cough spells and experienced left-sided chest pain. He has been asked to cover for couple days and his cough is mostly dry. In the ED was hemodynamically stable. He was on oxygen but no reported hypoxia. The patient laboratory workup was unremarkable in the ED troponins within normal limits. Chest x-ray showed left basilar infiltrate. The patient has history of dementia and dysphagia and was treated for aspiration pneumonia in the past. He was given IV Zosyn in the ED. Also given breathing treatments. The patient was also given Solu-Medrol IV. He denies any fever, chills, nausea, dizziness, rashes, abdominal pain, diarrhea, constipation, urinary symptoms, or neurological symptoms. Past Med Surg Social Fam HX - Past Medical History Medical history: atrial fibrillation, CHF, dementia, diabetes, hyperlipidemia, hypertension, renal disease Additional medical history: ALZHIEMER'S DISEASE. Psychiatric history: no psych history - Past Surgical History Surgical History: pacemaker/AICD Additional surgical history: TURP. SKIN CA - Social History Smoking Status: Never smoker Smokeless Tobacco Status: No Alcohol use: none Drug use: none - Family History Mother Hx Family Neuromuscular Disorders: Yes (ALZHIEMER'S DISEASE.) Internal Medicine - H&P: Meds Acetaminophen 650 mg PO Q4H PRN 03/09/17 [History] Albuterol Neb [Proventil Neb] 2.5 mg IH BID PRN 03/09/17 [History] Aspirin [Lo-Dose Aspirin EC] 81 mg PO QAM 03/09/17 [History] Carbidopa/Levodopa [Carbidopa-Levodopa 25-100 Tab] 1 each PO TID 03/09/17 [History] Isosorbide MONOnitrate (24 HR) [Imdur] 30 mg PO QAM 03/09/17 [History] Linagliptin [Tradjenta] 5 mg PO QAM 03/09/17 [History] Memantine [Namenda] 10 mg PO BID 03/09/17 [History] Midodrine HCl 2.5 mg PO BID 03/09/17 [History] Montelukast [Singulair] 10 mg PO DAILY 03/09/17 [History] [place]-3 Fatty Acids [Fish Oil Concentrate] 1,000 mg PO DAILY 03/09/17 [History] Polyethylene Glycol 3350 [MiraLAX] 17 gm PO DAILY PRN 03/09/17 [History] Cholecalciferol (D-3) [Vitamin D] 5,000 unit PO DAILY 07/25/17 [History] Insulin ASPART [NovoLOG] 15 unit SQ TID 07/25/17 [History] Insulin Glargine [Lantus] 25 unit SQ HS 07/25/17 [History] Fluticasone Propionate [Allergy Relief] 1 spr NS DAILY 05/24/18 [History] Furosemide [Lasix] 20 mg PO DAILY 05/24/18 [History] amLODIPine [Norvasc] 10 mg PO DAILY 05/24/18 [History] traZODone [TraZODone] 25 mg PO HS 05/24/18 [History] Allergy/AdvReac Type Severity Reaction Status Date / Time cimetidine [From Tagamet] AdvReac Irritable Verified 03/09/17 13:01 citalopram [From Celexa] AdvReac Nausea Verified 03/09/17 12:29 metformin AdvReac Diarrhea Verified 03/09/17 12:29 Review of systems: All systems reviewed are negative except as mentioned above - Constitutional Vitals: Temp Pulse Resp BP Pulse Ox 98.6 F 59 18 144/71 94 05/24/18 17:50 05/24/18 19:00 05/24/18 19:26 05/24/18 19:26 05/24/18 19:26 Exam: GEN: NAD HEENT: AT, NC, No cyanosis, oral mucosa is moist, No JVD Lymphatics: No lymphadenoapthy Eyes: Extrocular muscles intact, anicteric CVS:RRR. S1, S2, No m/r/g RESP: Diminished with rhonchi in the left lower lung rdz posteriorly. ABD: Soft, NT, ND, +BS EXT: 1 + edema, No rashes, 2+ DP NEURO: Nonfocal, CN II-XII intact, No focal motor or sensory deficits Psych: Cooperative, Not anxious or depressed Internal Med - H&P Results - Labs CBC & Chem 7: 05/24/18 18:28 05/24/18 18:28 Labs: Short CBC 05/24/18 Range/Units 18:28 WBC 8.7 (4.3-11.1) K/mcL Hgb 16.5 (12.9-16.9) g/dL Hct 47.6 (37.5-50.1) % Plt Count 213 (140-400) K/mcL Neutrophils # 5.5 (1.6-8.9) K/mcL BMP 05/24/18 18:28 Sodium 139 Potassium 4.0 Chloride 102 Carbon Dioxide 25 BUN 20 Creatinine 0.95 Glucose 257 H Calcium 9.6 Cardiac Enzymes 05/24/18 Range/Units 18:28 Troponin I < 0.03 (< 0.04) ng/mL - Impressions ITS Impressions Chest X-Ray 05/24/18 18:21 IMPRESSION: Left basilar opacity may reflect atelectasis or pneumonia. D/ / Marcin Lee MD / Marcin Lee MD Interpreting Provider: Marcin Lee MD - Assessment and plan (1) Pneumonia Current Visit: No Status: Acute Assessment and plan: Given the patient's history of choking we will treat as aspiration pneumonia although his infiltrates is on the left. We will place the patient on Unasyn. He was given Zosyn in the ED. We will check sputum cultures. Check urine strep and Legionella. Check respiratory panel. O2 support as needed. Nebs. Qualifiers: Pneumonia type: aspiration pneumonia Aspiration pneumonia type: unspecified Laterality: left Lung location: unspecified part of lung Qualified Code (s): J69.0 - Pneumonitis due to inhalation of food and vomit (2) Acute exacerbation of CHF (congestive heart failure) Current Visit: Yes Status: Acute Assessment and plan: Patient has LE edema on my exam. Recent echo showed mild diastolic HF. Will give him one push of 40 mg IV lasix and re-evaluate for need of IV lasix in the morning. Qualifiers: Heart failure type: diastolic Qualified Code(s): I50.33 - Acute on chronic diastolic (congestive) heart failure (3) Dementia Current Visit: No Status: Chronic Assessment and plan: Chronic. Supportive care. Qualifiers: Dementia type: unspecified type Dementia behavioral disturbance: without behavioral disturbance Qualified Code(s): F03.90 - Unspecified dementia without behavioral disturbance (4) Diabetes mellitus Current Visit: No Status: Chronic Assessment and plan: We will place the patient on insulin size scale. Resume home insulin as well. Continue Accu-Cheks. Qualifiers: Diabetes mellitus type: type 2 Diabetes mellitus residential insulin use: without residential use Diabetes mellitus complication status: without complication Qualified Code(s): E11.9 - Type 2 diabetes mellitus without complications (5) HTN (hypertension) Current Visit: No Status: Chronic Assessment and plan: Resume home antihypertensives Qualifiers: Hypertension type: essential hypertension Qualified Code(s): I10 - Essential (primary) hypertension (6) DVT prophylaxis Current Visit: No Status: Acute Assessment and plan: Heparin subcutaneous - Time Spent With Patient Total time spent is greater than 50% in coordination of care (as documented) at patient's floor/unit and/or counseling patient:
[2018-05-24] MEDS ORDERED: Furosemide 40 MG/4 ML VIAL IVP ONE (22:11)
[2018-05-24] MEDS: *HR* Heparin 5,000 UNIT/ML VIAL SQ SCH (23:03)
[2018-05-24] MEDS: Insulin LISPRO 300 UNITS/3 ML VIAL SQ SCH (23:03)
[2018-05-24] MEDS: Ampicillin/Sulbactam 1,500 MG in 0.9 % Sodium Chloride Mini Bag 100 ML IVPB SCH (23:04)
[2018-05-25] MEDS: Ampicillin/Sulbactam 1,500 MG in 0.9 % Sodium Chloride Mini Bag 100 ML IVPB SCH ×4 (05:11→23:57)
[2018-05-25] MEDS: *HR* Heparin 5,000 UNIT/ML VIAL SQ SCH ×3 (05:11→20:46)
[2018-05-25 05:52] LABS: Basophils % 0.1 %; Eosinophils % 0.1 %; Hematocrit 48.8 % (37.5-50.1); Hemoglobin 16.9 g/dL (12.9-16.9); Immature Granulocytes % 0.5 % (0-4); Lymphocytes # 1.1 K/mcL (0.6-4.6); Mean Corpuscular HGB Conc 34.6 g/dL (31.6-35.5); Mean Corpuscular Hemoglobin 29.1 pg (28.0-33.3); Mean Platelet Volume 10.9 fL (9.4-12.4); Monocytes # 0.1 K/mcL (0.0-1.3); Monocytes % 0.6 %; Neutrophils # 8.4 K/mcL (1.6-8.9); Platelet Count 207 K/mcL (140-400); Red Blood Count 5.81 M/mcL (4.19-5.50); Red Cell Distribution Width 12.7 % (11.5-14.5); Segmented Neutrophils % 87.7 %
[2018-05-25] MEDS: Insulin LISPRO 300 UNITS/3 ML VIAL SQ SCH ×4 (05:58→20:47)
[2018-05-25 06:09] LABS: BUN/Creatinine Ratio 22 (6-26); Blood Urea Nitrogen 23 mg/dL (8-23); Calcium 9.3 mg/dL (8.6-10.3); Carbon Dioxide 24 mEq/L (23-29); Chloride 101 mEq/L (98-107); Glucose 447 mg/dL (70-105); Magnesium 1.8 mg/dL (1.6-2.6); Osmolality,Calculated 307 (280-300); Potassium 4.2 mEq/L (3.5-5.1); Sodium 137 mEq/L (136-145); eGFR For Non-African Americans > 60 (> 60)
[2018-05-25] MEDS ORDERED: FATTY ACIDS PO SCH (09:00)
[2018-05-25] MEDS ORDERED: OMEGA PO SCH (09:00)
--- NOTE | 2018-05-25 10:06 | Internal Med Progress Note ---
<Tin Brewer S - Last Filed: 05/25/18 11:54> Hospitalist Progress Note - Encounter Date of Encounter: 05/25/18 Time of Encounter: 10:03 - Subjective Interval History: Mr. Gutierrez is a 82 year old male with a PMH of dementia, Parksinson's, Afib, pacer/AICD, CHF, HTN, and DM. He came to [facility] from [facility] after having left sided pain in his chest while eating. He had a coughing episode and apperently choked on his food yesterday. He was anxious that he may be having a heart attack. According to the daughter he has been having coughing spells since and it is dry, no sputum production. In the ED the pt was stable , on oxygen. He doesn't use oxygen at home. Has hx of dementia, tx for aspiration in the past. He had an unremarkable workup, including negative troponins. Was given Zosyn in the ED. CXR showed left basilar infiltrate. The patient has history of dementia and dysphagia and was treated for aspiration pneumonia in the past. Pt seen at bedside.He denies any fever, chills. Denies chest pain, n/v/d, abd pain. Breathing is at baseline, not on oxygen. - Exam Vitals: Temp Pulse Resp BP Pulse Ox 97.6 F 75 16 136/72 94 05/25/18 06:43 05/25/18 06:43 05/25/18 06:43 05/25/18 06:43 05/25/18 06:43 Exam: GEN: NAD, AOx3, sitting in chair comfortable HEENT: AT, NC, No cyanosis, oral mucosa is moist, No JVD Lymphatics: No lymphadenoapthy CVS:RRR. S1, S2, No m/r/g, CTA RESP: Diminished with rhonchi in the left lower lung rdz posteriorly. ABD: Soft, NT, ND, +BS, obese EXT: 1 + edema, No rashes, 2+ DP NEURO: No FND, CN2-12 intake Psych: Cooperative, Not anxious or depressed - Assessment and Plan (1) Pneumonia Current Visit: No Status: Acute Assessment and Plan: Pt has a hx of dementia, chocking , some coughing w/o sputum production - pneumonia may be secondary to aspiration In the ER, pt got one dose of Zosyn CXR showed left basilar opacity may reflect atelectasis or pneumonia. Plan: - Unasyn day 2 - legionella/strep antigens pending - respiratory panel pending - bedside swallowing study - speech evaluation - duonebs prn - ptot evaluation (2) HTN (hypertension) Current Visit: No Status: Chronic Assessment and Plan: Resume home antihypertensives - on norvasc (3) Dementia Current Visit: No Status: Chronic Assessment and Plan: Chronic. - conitnue home meds (4) Diabetes mellitus Current Visit: No Status: Chronic Assessment and Plan: ISS - glucose this morning 447 - levemir 25U (5) DVT prophylaxis Current Visit: No Status: Acute Assessment and Plan: Heparin subcutaneous (6) Allergic rhinitis Current Visit: No Status: Chronic Assessment and Plan: On fluticasone - Time Spent with Patient Total time spent is greater than 50% in coordination of care (as documented) at patient's floor/unit and/or counseling patient: Internal Medicine: Result - Labs CBC & Chem 7: 05/25/18 05:02 05/25/18 05:02 Labs: Short CBC 05/24/18 05/25/18 Range/Units 18:28 05:02 WBC 8.7 9.6 (4.3-11.1) K/mcL Hgb 16.5 16.9 (12.9-16.9) g/dL Hct 47.6 48.8 (37.5-50.1) % Plt Count 213 207 (140-400) K/mcL Neutrophils # 5.5 8.4 (1.6-8.9) K/mcL BMP 05/24/18 05/25/18 18:28 05:02 Sodium 139 137 Potassium 4.0 4.2 Chloride 102 101 Carbon Dioxide 25 24 BUN 20 23 Creatinine 0.95 1.03 Glucose 257 H 447 H Calcium 9.6 9.3 Cardiac Enzymes 05/24/18 Range/Units 18:28 Troponin I < 0.03 (< 0.04) ng/mL - Impressions Impressions Chest X-Ray 05/24/18 18:21 IMPRESSION: Left basilar opacity may reflect atelectasis or pneumonia. D/ / Marcin Lee MD / Marcin Lee MD Interpreting Provider: Marcin Lee MD Consult Discharge Plan - Plan Referrals: Augustina Cyr [Primary Care Provider] - <Zay Manuel - Last Filed: 05/25/18 15:53> Hospitalist Progress Note - Encounter Date of Encounter: 05/25/18 Time of Encounter: 15:35 - Exam Vitals: Temp Pulse Resp BP Pulse Ox 97.4 F L 69 16 144/75 94 05/25/18 15:24 05/25/18 15:24 05/25/18 15:24 05/25/18 15:24 05/25/18 15:24 - Assessment and Plan (1) Pneumonia Current Visit: No Status: Acute (2) HTN (hypertension) Current Visit: No Status: Chronic (3) Dementia Current Visit: No Status: Chronic (4) Diabetes mellitus Current Visit: No Status: Chronic (5) DVT prophylaxis Current Visit: No Status: Acute (6) Allergic rhinitis Current Visit: No Status: Chronic - Time Spent with Patient Total time spent is greater than 50% in coordination of care (as documented) at patient's floor/unit and/or counseling patient: Internal Medicine: Result - Labs CBC & Chem 7: 05/25/18 05:02 05/25/18 05:02 Labs: Short CBC 05/24/18 05/25/18 Range/Units 18:28 05:02 WBC 8.7 9.6 (4.3-11.1) K/mcL Hgb 16.5 16.9 (12.9-16.9) g/dL Hct 47.6 48.8 (37.5-50.1) % Plt Count 213 207 (140-400) K/mcL Neutrophils # 5.5 8.4 (1.6-8.9) K/mcL BMP 05/24/18 05/25/18 18:28 05:02 Sodium 139 137 Potassium 4.0 4.2 Chloride 102 101 Carbon Dioxide 25 24 BUN 20 23 Creatinine 0.95 1.03 Glucose 257 H 447 H Calcium 9.6 9.3 Cardiac Enzymes 05/24/18 Range/Units 18:28 Troponin I < 0.03 (< 0.04) ng/mL - Impressions Impressions Chest X-Ray 05/24/18 18:21 IMPRESSION: Left basilar opacity may reflect atelectasis or pneumonia. D/ / Marcin Lee MD / Marcin Lee MD Interpreting Provider: Marcin Lee MD Videofluoroscopic Swallow 05/25/18 10:33 IMPRESSION: Swallowing mechanism grossly within normal limits without evidence of aspiration. Please see separate speech pathology report for full discussion of findings and recommendations. D/ / Hiram Macias MD / Hiram Macias MD Interpreting Provider: Hiram Macias MD - Attending Attestation I saw evaluated and examined this patient and my medical decision-making was reviewed with the Resident Physician, Tin Brewer. I agree with the documented findings, disposition and treatment plan as described except to any changes set forth below. We independently had [id number] contact with the patient. Evaluated patient earlier today. Patient has significant difficulty in hearing. Underlying dementia. Feels hungry and wants to eat. Has not had any fevers or chills overnight. Denies any pain in his chest or abdomen today. Has not been having coughing spells this morning. On exam, patient is awake and alert. Oriented to place and person. S1 and S2 are normal. Breath sounds are normal. Mild bilateral wheezing. Abdomen is soft, nontender. Aspiration pneumonia/ pneumonitis: Patient hospitalized with concern for aspiration pneumonitis/pneumonia. On IV antibiotics. Speech therapy evaluating patient with me a modified barium swallow. We will follow the recommendations. Moderate risk for complications. Essential hypertension: Blood pressure is controlled. Continue Imdur. Parkinson's disease: Continue carbidopa levodopa. DVT prophylaxis with subcutaneous heparin <OsmanTin Kerry - Last Filed: 05/25/18 11:54> (1) Pneumonia Qualifiers: Pneumonia type: aspiration pneumonia Aspiration pneumonia type: unspecified Laterality: left Lung location: unspecified part of lung Qualified Code(s): J69.0 - Pneumonitis due to inhalation of food and vomit (2) HTN (hypertension) Qualifiers: Hypertension type: essential hypertension Qualified Code(s): I10 - Essential (primary) hypertension (3) Dementia Qualifiers: Dementia type: unspecified type Dementia behavioral disturbance: without behavioral disturbance Qualified Code(s): F03.90 - Unspecified dementia without behavioral disturbance (4) Diabetes mellitus Qualifiers: Diabetes mellitus type: type 2 Diabetes mellitus bed bug exterminator insulin use: without long-term use Diabetes mellitus complication status: without complication Qualified Code(s): E11.9 - Type 2 diabetes mellitus without complications (6) Allergic rhinitis Qualifiers: Allergic rhinitis trigger: unspecified Allergic rhinitis seasonality: unspecified Qualified Code(s): J30.9 - Allergic rhinitis, unspecified <MarSrcj - Last Filed: 05/25/18 15:53> (1) Pneumonia Qualifiers: Pneumonia type: aspiration pneumonia Aspiration pneumonia type: unspecified Laterality: left Lung location: unspecified part of lung Qualified Code(s): J69.0 - Pneumonitis due to inhalation of food and vomit (2) HTN (hypertension) Qualifiers: Hypertension type: essential hypertension Qualified Code(s): I10 - Essential (primary) hypertension (3) Dementia Qualifiers: Dementia type: unspecified type Dementia behavioral disturbance: without behavioral disturbance Qualified Code(s): F03.90 - Unspecified dementia without behavioral disturbance (4) Diabetes mellitus Qualifiers: Diabetes mellitus type: type 2 Diabetes mellitus bed bug exterminator insulin use: without long-term use Diabetes mellitus complication status: without complication Qualified Code(s): E11.9 - Type 2 diabetes mellitus without complications (6) Allergic rhinitis Qualifiers: Allergic rhinitis trigger: unspecified Allergic rhinitis seasonality: unspecified Qualified Code(s): J30.9 - Allergic rhinitis, unspecified
[2018-05-25] MEDS: Isosorbide MONOnitrate (24 HR) 30 MG TAB.ER.24H PO SCH (10:27)
[2018-05-25] MEDS: Carbidopa/Levodopa 25/100 TABLET PO SCH ×3 (10:27→20:46)
[2018-05-25] MEDS: Aspirin Enteric Coated 81 MG Tablet PO SCH (10:27)
[2018-05-25] MEDS: amLODIPine 5 MG TABLET PO SCH (10:27)
[2018-05-25] MEDS: Cholecalciferol (D-3) 1,000 UNIT TABLET PO SCH (10:27)
[2018-05-25] MEDS: Fluticasone Propionate Nasal 50 MCG/SPRAY BOTTLE NS SCH (10:28)
[2018-05-25] MEDS: Insulin DETEMIR 100 UNIT/ML X5UNITS SQ SCH (11:25)
[2018-05-25] MEDS ORDERED: traZODone 50 MG TABLET PO SCH (21:00)
[2018-05-25] MEDS ORDERED: Insulin DETEMIR 100 UNIT/ML X5UNITS SQ SCH (21:00)
[2018-05-26] MEDS: Ampicillin/Sulbactam 1,500 MG in 0.9 % Sodium Chloride Mini Bag 100 ML IVPB SCH ×2 (04:57→12:19)
[2018-05-26] MEDS: *HR* Heparin 5,000 UNIT/ML VIAL SQ SCH ×2 (04:57→14:40)
[2018-05-26 06:35] LABS: Basophils # 0.1 K/mcL (0.0-0.2); Basophils % 0.4 %; Eosinophils # 0.1 K/mcL (0.0-0.6); Eosinophils % 0.5 %; Hematocrit 49.2 % (37.5-50.1); Hemoglobin 16.9 g/dL (12.9-16.9); Immature Granulocytes % 0.5 % (0-4); Lymphocytes # 2.4 K/mcL (0.6-4.6); Lymphocytes % 20.5 %; Mean Corpuscular HGB Conc 34.3 g/dL (31.6-35.5); Mean Corpuscular Hemoglobin 29.6 pg (28.0-33.3); Mean Corpuscular Volume 86.2 fL (83.0-100.0); Mean Platelet Volume 10.9 fL (9.4-12.4); Monocytes # 0.8 K/mcL (0.0-1.3); Monocytes % 6.6 %; Neutrophils # 8.4 K/mcL (1.6-8.9); Platelet Count 226 K/mcL (140-400); Red Blood Count 5.71 M/mcL (4.19-5.50); Red Cell Distribution Width 13.3 % (11.5-14.5); Segmented Neutrophils % 71.5 %
[2018-05-26 06:55] LABS: BUN/Creatinine Ratio 31 (6-26); Blood Urea Nitrogen 29 mg/dL (8-23); Calcium 9.2 mg/dL (8.6-10.3); Carbon Dioxide 26 mEq/L (23-29); Chloride 103 mEq/L (98-107); Glucose 271 mg/dL (70-105); Osmolality,Calculated 303 (280-300); Potassium 3.6 mEq/L (3.5-5.1); Sodium 139 mEq/L (136-145); eGFR For Non-African Americans > 60 (> 60)
[2018-05-26] MEDS: amLODIPine 5 MG TABLET PO SCH (08:43)
[2018-05-26] MEDS: Cholecalciferol (D-3) 1,000 UNIT TABLET PO SCH (08:43)
[2018-05-26] MEDS: Carbidopa/Levodopa 25/100 TABLET PO SCH (08:43)
[2018-05-26] MEDS: Insulin LISPRO 300 UNITS/3 ML VIAL SQ SCH ×2 (08:43→12:18)
[2018-05-26] MEDS: Aspirin Enteric Coated 81 MG Tablet PO SCH (08:43)
[2018-05-26] MEDS: Isosorbide MONOnitrate (24 HR) 30 MG TAB.ER.24H PO SCH (08:43)
[2018-05-26] MEDS: Insulin DETEMIR 100 UNIT/ML X5UNITS SQ SCH (08:44)
[2018-05-26] MEDS: Fluticasone Propionate Nasal 50 MCG/SPRAY BOTTLE NS SCH (08:44)
[2018-05-26 10:17] LABS: Adenovirus Not Detected (Not Detect); Bordetella Pertussis Not Detected (Not Detect); Chlamydophila pneumoniae Not Detected (Not Detect); Coronavirus 229E Not Detected (Not Detect); Coronavirus HKU1 Not Detected (Not Detect); Coronavirus NL63 Not Detected (Not Detect); Coronavirus OC43 Not Detected (Not Detect); Human Metapneumovirus Not Detected (Not Detect); Human Rhinovirus/Enterovirus Not Detected (Not Detect); Influenza A Subtype 2009 H1 Not Detected (Not Detect); Influenza A Untypeable Not Detected (Not Detect); Influenza B Not Detected (Not Detect); Mycoplasma pneumoniae Not Detected (Not Detect); Parainfluenza Virus 1 Not Detected (Not Detect); Parainfluenza Virus 2 Not Detected (Not Detect); Parainfluenza Virus 3 Not Detected (Not Detect); Parainfluenza Virus 4 Not Detected (Not Detect); Respiratory Syncytial Virus Not Detected (Not Detect)
--- NOTE | 2018-05-26 12:45 | Discharge Summary ---
<Laquita Bernstein E - Last Filed: 05/26/18 12:42> Orders not resulted at time of discharge: Pending orders 05/24/18 20:53 Culture,Sputum with Gram Stain [RM] Routine Date of Encounter: 05/26/18 Time of Encounter: 09:00 - Discharge Diagnosis (1) Pneumonia Priority: Primary Status: Acute Qualifiers: Pneumonia type: aspiration pneumonia Aspiration pneumonia type: unspecified Laterality: left Lung location: unspecified part of lung Qualified Code(s): J69.0 - Pneumonitis due to inhalation of food and vomit (2) Allergic rhinitis Priority: Secondary Status: Chronic Qualifiers: Allergic rhinitis trigger: unspecified Allergic rhinitis seasonality: unspecified Qualified Code(s): J30.9 - Allergic rhinitis, unspecified (3) Dementia Priority: Secondary Status: Chronic Qualifiers: Dementia type: unspecified type Dementia behavioral disturbance: without behavioral disturbance Qualified Code(s): F03.90 - Unspecified dementia without behavioral disturbance (4) Diabetes mellitus Priority: Secondary Status: Chronic Qualifiers: Diabetes mellitus type: type 2 Diabetes mellitus shelter insulin use: without intermodal truck driver use Diabetes mellitus complication status: without complication Qualified Code(s): E11.9 - Type 2 diabetes mellitus without complications (5) HTN (hypertension) Priority: Secondary Status: Chronic Qualifiers: Hypertension type: essential hypertension Qualified Code(s): I10 - Essential (primary) hypertension Hospital course: Mr. Gutierrez is a 82 year old male with a PMH of dementia, Parksinson's, Afib, pacer/AICD, CHF, HTN, and DM. He came to [facility] after having left sided pain in his chest while eating. He had a coughing episode and apperently choked on his food yesterday. He was anxious that he may be having a heart attack. According to the daughter he has been having coughing spells since and it is dry, no sputum production. In the ED the pt was stable , on oxygen. He doesn't use oxygen at home. Has hx of dementia, tx for aspiration in the past. He had an unremarkable workup, including negative troponins. Was given Zosyn in the ED. CXR showed left basilar infiltrate. The patient has history of dementia and dysphagia and was treated for aspiration pneumonia in the past. Was treated with Ampicillin/Sulbactam with good clinical outcome, will continue with augmentin outpatient Discharge discussed with: patient - Time Spent with Patient Total time spent providing and/or coordinating discharge services: - Discharge Medications Prescriptions: Amoxicillin/Clavulanate [Augmentin] 875 mg PO BIDWM 10 Days #20 tablet Lactobacillus [Culturelle] 1 each PO DAILY 30 Days #30 cap.sprink Home Medications: Acetaminophen 650 mg PO Q4H PRN 03/09/17 [History] Albuterol Neb [Proventil Neb] 2.5 mg IH BID PRN 03/09/17 [History] Aspirin [Lo-Dose Aspirin EC] 81 mg PO QAM 03/09/17 [History] Carbidopa/Levodopa [Carbidopa-Levodopa 25-100 Tab] 1 each PO TID 03/09/17 [History] Isosorbide MONOnitrate (24 HR) [Imdur] 30 mg PO QAM 03/09/17 [History] Linagliptin [Tradjenta] 5 mg PO QAM 03/09/17 [History] Memantine [Namenda] 10 mg PO BID 03/09/17 [History] Midodrine HCl 2.5 mg PO BID 03/09/17 [History] Montelukast [Singulair] 10 mg PO DAILY 03/09/17 [History] [place]-3 Fatty Acids [Fish Oil Concentrate] 1,000 mg PO DAILY 03/09/17 [History] Polyethylene Glycol 3350 [MiraLAX] 17 gm PO DAILY PRN 03/09/17 [History] Cholecalciferol (D-3) [Vitamin D] 5,000 unit PO DAILY 07/25/17 [History] Insulin ASPART [NovoLOG] 15 unit SQ TID 07/25/17 [History] Insulin Glargine [Lantus] 25 unit SQ HS 07/25/17 [History] Fluticasone Propionate [Allergy Relief] 1 spr NS DAILY 05/24/18 [History] Furosemide [Lasix] 20 mg PO DAILY 05/24/18 [History] amLODIPine [Norvasc] 10 mg PO DAILY 05/24/18 [History] traZODone [TraZODone] 25 mg PO HS 05/24/18 [History] Amoxicillin/Clavulanate [Augmentin] 875 mg PO BIDWM 10 Days #20 tablet 05/26/18 [Rx] Lactobacillus [Culturelle] 1 each PO DAILY 30 Days #30 cap.sprink 05/26/18 [Rx] Allergies/Adverse Reactions: Allergy/AdvReac Type Severity Reaction Status Date / Time No Known Allergies Allergy Verified 05/25/18 14:13 Date of admission: 05/24/18 20:58 Primary care physician: Augustina Cyr Consults: 05/24/18 20:52 Consult to Occupational Therapy [CONS] Routine Comment: Evaluate, develop and implement POC Reason for Consult: therapy/placement needs Does patient have active BEDREST order?: No Is patient medically & hemodynamically stable?: Yes Consult to Physical Therapy [CONS] Routine Comment: Evaluate, develop and implement POC Reason for Consult: PT eval Does patient have active BEDREST order?: No Is patient medically & hemodynamically stable?: Yes 05/24/18 20:56 Consult to Speech Therapy [CONS] Stat Comment: Evaluate, develop and implement POC Reason for Consult: dysphagia Call Completed: No 05/25/18 10:09 Consult to Nurse Navigator [CONS] Routine Comment: CHF education Discharging clinician: Zay Manuel Anticipated date of discharge: 05/26/18 - Constitutional Vitals: Temp Pulse Resp BP Pulse Ox 97.3 F L 60 22 108/50 92 05/26/18 10:36 05/26/18 10:36 05/26/18 10:36 05/26/18 10:36 05/26/18 10:36 Exam: General: AAOx3, answers questions appropriately, no acute distress Cardio: RRR, no murmurs, rubs or gallops Pulm: diminished breath sounds in lower lobes, no wheezing, no rales or rhonci Abdomen: normal bowel sounds, no gaurding or rigidity, no tenderness on palpation Extremities: no pedal edema, normal pulses in all 4 extremities Skin: warm, dry, intact - Patient Status Disposition: Transfer LTC Condition: Good Functional capacity at discharge: independent ambulation Overall status at discharge: patient is progressing back to baseline - Discharge Instructions Instructions: Bacterial Pneumonia (GEN) Follow Up With: Augustina Cyr [Primary Care Provider] - Forms: ED Satisfaction Letter, Work/School Release Additional Instructions: Take all antibiotics as prescribed and do not stop unless your primary care doctor says to Take all home medications as directed - Diet and Activity Activity: increase activity as tolerated Diet: advance to your usual diet <Zay Manuel - Last Filed: 05/26/18 13:30> - NOTES TO OUTPATIENT PROVIDER Notes to Outpatient Provider: Patient hospitalized for aspiration pneumonia. Treated with antibiotics with improvement in his symptoms. He does have leukocytosis with WBC count of 11.8 but no fever or chills. Symptomatically he feels much better. Will be discharged on oral antibiotics. Orders not resulted at time of discharge: Pending orders 05/24/18 20:53 Culture,Sputum with Gram Stain [RM] Routine Date of Encounter: 05/26/18 Time of Encounter: 09:40 - Discharge Diagnosis (1) Pneumonia Status: Acute Qualifiers: Pneumonia type: aspiration pneumonia Aspiration pneumonia type: unspecified Laterality: left Lung location: unspecified part of lung Qualified Code(s): J69.0 - Pneumonitis due to inhalation of food and vomit (2) HTN (hypertension) Status: Chronic Qualifiers: Hypertension type: essential hypertension Qualified Code(s): I10 - Essential (primary) hypertension (3) Dementia Status: Chronic Qualifiers: Dementia type: unspecified type Dementia behavioral disturbance: without behavioral disturbance Qualified Code(s): F03.90 - Unspecified dementia without behavioral disturbance (4) Diabetes mellitus Status: Chronic Qualifiers: Diabetes mellitus type: type 2 Diabetes mellitus intermodal truck driver insulin use: without intermodal truck driver use Diabetes mellitus complication status: without complication Qualified Code(s): E11.9 - Type 2 diabetes mellitus without complications (5) DVT prophylaxis Status: Acute (6) Allergic rhinitis Status: Chronic Qualifiers: Allergic rhinitis trigger: unspecified Allergic rhinitis seasonality: unspecified Qualified Code(s): J30.9 - Allergic rhinitis, unspecified Hospital course: Mr. Gutierrez is a 82 year old male - Time Spent with Patient Total time spent providing and/or coordinating discharge services: Less than 30 minutes (10 min) Date of admission: 05/24/18 20:58 Primary care physician: Augustina Cyr Consults: 05/24/18 20:52 Consult to Occupational Therapy [CONS] Routine Comment: Evaluate, develop and implement POC Reason for Consult: therapy/placement needs Does patient have active BEDREST order?: No Is patient medically & hemodynamically stable?: Yes Consult to Physical Therapy [CONS] Routine Comment: Evaluate, develop and implement POC Reason for Consult: PT eval Does patient have active BEDREST order?: No Is patient medically & hemodynamically stable?: Yes 05/24/18 20:56 Consult to Speech Therapy [CONS] Stat Comment: Evaluate, develop and implement POC Reason for Consult: dysphagia Call Completed: No 05/25/18 10:09 Consult to Nurse Navigator [CONS] Routine Comment: CHF education - Constitutional Vitals: Temp Pulse Resp BP Pulse Ox 97.3 F L 60 22 108/50 92 05/26/18 10:36 05/26/18 10:36 05/26/18 10:36 05/26/18 10:36 05/26/18 10:36 - Attending Attestation I saw evaluated and examined this patient and my medical decision-making was reviewed with the Resident Physician, Laquita Bernstein. I agree with the documented findings, disposition and treatment plan as described except to any changes set forth below. We independently had [id number] contact with the patient. Patient with a history of dementia, atrial fibrillation, hypertension and hyperlipidemia, diabetes was hospitalized here with some episodes of chest pain and coughing spells. Patient's troponins were normal. Chest x-ray showed left basal infiltrate. Patient reportedly has a history of dysphagia and so was suspected of having aspiration pneumonia. He was started on antibiotics for this. Since then he has recovered well. He was evaluated for speech therapy and recommended regular diet with small bites and sips and thin liquids. He is tolerating this diet well and is clinically stable for discharge. He will complete antibiotic course at home. He will follow up his primary care provider for further management. On exam, patient is awake and alert. Heart sounds are normal. Decreased breath sounds at both bases. No wheezing audible.
[2018-05-26 13:51] VITALS: BP 122/61
--- NOTE | 2018-05-28 22:18 | Electrocardiograph Report ---
[address] [address] Test Date: 2018-05-24 Pat Name: Ray Gutierrez Department: EXAMC1 Room: 3A41 Gender: M Roll Table Operator: : [id number] Requested By: Melissa Mack Order Number: [id number] Reading MD: Dian White Measurements Intervals [place] Rate: 66 P: NE: 200 QRS: -57 QRSD: 104 T: 0 QT: 431 QTc: 452 Interpretive Statements Atrial-paced complexes Left anterior fascicular block Low voltage, precordial leads Abnormal R-wave progression, late transition Left ventricular hypertrophy Borderline T abnormalities, inferior leads Electronically Signed On 05-28-2018 22:16:53 EST by Dian White
== END 2018-05-26 14:50 | disposition home or self-care (01) ==
LOC: 3ANU 17:46 → EMEROOARM 17:46 → SUATTDRO 20:58 → 3ANU 22:10
PROVIDERS: ADMIT Pediatrics; ATTEND Internal Medicine